=== PATIENT | female | born 1955 | race Caucasian/White ===

== ENCOUNTER 2018-09-03 11:08 | Inpatient (IN) ==
[~2018-09-03 11:08] MED LIST: MIDAZOLAM 2 MG/2 ML VIAL IV ONE; PROPOFOL 200 MG/20 ML VIAL IV ONE; fentaNYL 100 MCG/2 ML VIAL IV ONE
--- NOTE | 2018-09-03 16:54 | Internal Med History&Physical ---
Medical - H&P: [facility] Patient information: Note initiated : 09/03/18 at 4:50 pm Service Date, if different from initiated Date: [] Patient: Lizeth Newberry a 63 y/o F admitted on 09/03/18 for Right Great Toe Infection. Chief Complaint: [] Chief complaint: right big toe infection History of present illness: Ms. Newberry is a 63 year old F with a history of poorly controlled diabetes/diabetic neuropathy/foot ulcers who presents from [facility] emergency room after she presented there with increasing right big toe/distal foot swelling redness and discharge that she notices this morning along with a foul swelling order. Patient is a known diabetic with neuropathy. She endorses to poor blood sugar control. She has been following up with wound care for a year and a half for right foot ulcer secondary diabetic neuropathy. We'll last couple of days around the base of big toe she has noted increasing redness. This morning she found foul-smelling discharge soaking the Band-Aid. He subsequently went to the ER. Initial workup was consistent with cellulitis. Orthopedics was consulted and patient was requested to be transferred to [facility] for further evaluation and management and likely surgical amputation Family evaluation patient is accompanied with her Shamir. She denies activ e distress, fever, chills, sweats. She denies diarrhea dysuria, skin rash, joint pain, arthralgia myalgia. Review of systems 10 point review of system was performed and is negative except for what is discussed above Medical - H&P: PMH Medical history: COPD with exacerbation (Chronic) Hypoxia (Chronic) Pain from implanted hardware (Chronic) Recurrent UTI (Chronic) Diverticular disease (Chronic) Adrenal adenoma (Chronic) Goiter (Chronic) Morbid obesity (Chronic) Intertrigo (Chronic) Mass in neck (Chronic) Back pain, chronic (Chronic) Diabetic ulcer of right great toe (Chronic) Osteomyelitis (Chronic) DVT (deep venous thrombosis) (Chronic) Embolism (Chronic) Chest discomfort (Chronic) Recurrent boils (Chronic) Pressure ulcer of left buttock, stage 2 (Chronic) Foot ulcer, left (Chronic) Insulin dependent type 2 diabetes mellitus (Chronic) Edema (Chronic) GERD (gastroesophageal reflux disease) (Chronic) Diverticulitis (Chronic) Dysplasia of cervix (Chronic) Benign hypertension (Chronic) Anxiety disorder (Chronic) Irritable bowel syndrome (Chronic) Paranoid schizophrenia (Chronic) SOB (shortness of breath) (Chronic) 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, with long-term current use of insulin (Chronic) Dizziness (Chronic) Obstructive sleep apnea (Acute) Dysphagia (Acute) Hypertension (Acute) Chronic pain (Acute) Tobacco abuse (Acute) Hyperlipidemia (Acute) Candidiasis (Acute) COPD (chronic obstructive pulmonary disease) (Acute) Tachycardia (Acute) Leukocytosis (Acute) Cardiomegaly (Acute) Chronic toe ulcer (Acute) Diabetes mellitus type II, uncontrolled (Acute) UTI (urinary tract infection) (Acute) Urinary incontinence (Acute) Abdominal pain (Acute) Diarrhea (Acute) Dysuria (Acute) Surgical History History of oral surgery (Chronic) History of right cataract surgery (Chronic) History of bilateral knee replacement (Chronic) H/O neck surgery (Acute) History of D&C (Chronic) with cryotherapy of cervix History of bilateral salpingo-oophorectomy (BSO) (Chronic ~1981) History of colonoscopy (Chronic ~03/20/12) Beau Santiago History of esophagogastroduodenoscopy (EGD) (Chronic ~10/09/12) History of left cataract surgery (Chronic) Hx of LASIK (Chronic) right eye Family History Mother Malignant neoplasm of stomach Father Malignant neoplasm of lung Maternal Grandmother Malignant neoplasm of lung Paternal Grandmother Acute myocardial infarction History of heart bypass surgery Other Diabetes Hypertension Stroke Social history: to [place] Quit smoking 3 months ago No alcoholism Medical - H&P: Meds Home Medications Medication Instructions Recorded Confirmed Type aripiprazole 30 mg tablet 30 mg PO DAILY 30 Days #30 02/12/15 09/03/18 History fluoxetine 20 mg capsule 40 mg PO DAILY 30 Days #60 02/12/15 09/03/18 History potassium chloride ER 10 mEq 10 meq PO QAMCC 30 Days #30 02/12/15 09/03/18 History tablet,extended release albuterol 90 mcg/actuation aerosol mcg INHALATION 06/27/18 08/03/18 History inhaler amitriptyline 75 mg tablet 75 mg PO HS 06/27/18 09/03/18 History apixaban 5 mg tablet 5 mg PO BID 06/27/18 09/03/18 History fluticasone 250 mcg-salmeterol 50 1 inh INHALATION BID 06/27/18 08/03/18 History mcg/dose blistr powdr for inhalation insulin aspart U- 100 100 unit/mL See Rx Instructions SUB-Q .COMPLEX 06/27/18 08/03/18 History subcutaneous pen insulin glargine (U-100) 100 68 unit SUB-Q QHS ml 06/27/18 08/03/18 History unit/mL (3 mL) subcutaneous pen metformin 1,000 mg tablet 1,000 mg PO BID 06/27/18 09/03/18 History sitagliptin 50 mg tablet 50 mg PO DAILY 06/27/18 09/03/18 History zolpidem 5 mg tablet 5 mg PO QHS 06/27/18 09/03/18 History Furosemide [Lasix] 40 mg PO DAILY 09/03/18 09/03/18 History Omeprazole 40 mg PO ACB 09/03/18 09/03/18 History Tamsulosin [Flomax] 0.4 mg PO HS 09/03/18 09/03/18 History risperiDONE [Risperdal] 4 mg PO BID 09/03/18 09/03/18 History Allergies Allergy/AdvReac Type Severity Reaction Status Date / Time Penicillins Allergy Mild Hives Verified 09/03/18 16:19 gabapentin AdvReac Intermediate Hallucinati Verified 09/04/18 06:44 ng sulfamethoxazole AdvReac Mild Itching Verified 09/04/18 06:44 [From Bactrim] tramadol AdvReac Mild Itching Verified 09/04/18 06:44 trimethoprim [From Bactrim] AdvReac Mild Itching Verified 09/04/18 06:44 Medical - H&P: Exam - Constitutional Vitals: Temp Pulse Resp BP Pulse Ox 97.1 F 87 12 158/62 94 09/03/18 14:43 09/03/18 14:43 09/03/18 14:43 09/03/18 14:43 09/03/18 14:43 General appearance: morbidly obese Exam: Alert oriented minimally anxious Nonlabored breathing Diminished breath sounds Eye movements symmetrical Oral cavity dry No ear or nose discharge abdomen soft S1 and S2 regular rhythm Lower extremity right significant lymphedematous change/stasis dermatitis/right big toe ulcer/cellulitis distal foot Psych alert cooperative, anxious Neuro nonfocal except for neuropathic changes Medical - H&P: Reslt - Labs CBC & Chem 7: 09/04/18 03:56 09/04/18 03:56 Medical - H&P: A/P (1) Diabetic foot infection Current visit: Yes Status: Acute * Diabetic foot infection-orthopedic consult * Cellulitis, rule out osteomyelitis-right foot imagingMRI * Anxiety disorder continue home dose fluoxetine * Hypertension continue lisinopril * DM type II continue basal prandial insulin/sitagliptin * Neuropathy continue amitriptyline * History of COPD continue bronchodilators * Recently diagnosed lung mass status post biopsy. Followed by Dr. Donis * Full code Plan * Orthopedics consult * Antibiotic coverage * Rt Foot imaging * Pre-existing medical condition management as above * Nothing by mouth after midnight * Inpatient admission Medical - H&P: Qual - VTE Deep Vein Thrombosis/Pulmonary Embolism Present on Admission: No
[2018-09-03] MEDS ORDERED: guaiFENesin/CODEINE 10 ML UDC PO PRN (17:03)
[2018-09-03] MEDS ORDERED: DEXTROSE 31 GM ORAL.SUSP PO PRN (17:03)
[2018-09-03] MEDS ORDERED: ONDANSETRON 4 MG/2 ML VIAL IV PRN (17:03)
[2018-09-03] MEDS ORDERED: ACETAMINOPHEN 325 MG TABLET PO PRN (17:03)
[2018-09-03] MEDS ORDERED: DEXTROSE 50% 50 ML VIAL IV PRN (17:03)
[2018-09-03] MEDS: INSULIN LISPRO 1 UNIT/0.01 ML UNIT SQ SCH ×2 (17:37→21:22)
--- NOTE | 2018-09-03 18:30 | Orthopedic Consult Note ---
History of Present Illness - HPI Patient information: Note initiated : 09/03/18 at 6:28 pm Service Date, if different from initiated Date: [] Patient: Lizeth Newberry 63 y/o F admitted on 09/03/18 for Right Great Toe Infection. Chief Complaint: [] Consult date: 09/03/18 Requesting physician: Mike Díaz Consult reason: other (OPEN WOUND WITH INFECTION RIGHT BIG TOE) Review of Systems Constitutional: chills, fever(s) Musculoskeletal: as per HPI Medications and Allergies Home Medications Medication Instructions Recorded Confirmed Type aripiprazole 30 mg tablet 30 mg PO DAILY 30 Days #30 02/12/15 09/03/18 History fluoxetine 20 mg capsule 40 mg PO DAILY 30 Days #60 02/12/15 09/03/18 History potassium chloride ER 10 mEq 10 meq PO QAMCC 30 Days #30 02/12/15 09/03/18 History tablet,extended release albuterol 90 mcg/actuation aerosol mcg INHALATION 06/27/18 08/03/18 History inhaler amitriptyline 75 mg tablet 75 mg PO HS 06/27/18 09/03/18 History apixaban 5 mg tablet 5 mg PO BID 06/27/18 09/03/18 History fluticasone 250 mcg-salmeterol 50 1 inh INHALATION BID 06/27/18 08/03/18 History mcg/dose blistr powdr for inhalation insulin aspart U- 100 100 unit/mL See Rx Instructions SUB-Q .COMPLEX 06/27/18 08/03/18 History subcutaneous pen insulin glargine (U-100) 100 68 unit SUB-Q QHS ml 06/27/18 08/03/18 History unit/mL (3 mL) subcutaneous pen metformin 1,000 mg tablet 1,000 mg PO BID 06/27/18 09/03/18 History sitagliptin 50 mg tablet 50 mg PO DAILY 06/27/18 09/03/18 History zolpidem 5 mg tablet 5 mg PO QHS 06/27/18 09/03/18 History Furosemide [Lasix] 40 mg PO DAILY 09/03/18 09/03/18 History Omeprazole 40 mg PO ACB 09/03/18 09/03/18 History Tamsulosin [Flomax] 0.4 mg PO HS 09/03/18 09/03/18 History risperiDONE [Risperdal] 4 mg PO BID 09/03/18 04 History Allergies Allergy/AdvReac Type Severity Reaction Status Date / Time gabapentin Allergy Intermediate Hallucinati Verified 09/03/18 16:19 ng Penicillins Allergy Mild Hives Verified 09/03/18 16:19 sulfamethoxazole Allergy Mild Itching Verified 09/03/18 16:19 [From Bactrim] tramadol Allergy Mild Itching Verified 09/03/18 16:19 trimethoprim [From Bactrim] Allergy Mild Itching Verified 09/03/18 16:19 Physical Examination - Ankle & Foot right Ankle appearance: swelling, laceration Foot appearance: swelling, erythema Foot swelling: toes Tenderness with palpation: none Ankle pain worse with weight bearing: No Ankle pain relieved by non-weight bearing: No Foot pain worse with weight bearing: No Tingling/Numbness: toes Foot alignment: normal Hammer toe location: none ROM: first MTP joint flexion: 0 degrees ROM: first MTP joint extension: normal Crepitus with motion: No Strength: dorsiflexion: 5/5 Strength: plantarflexion: 5/5 Assessment and Plan (1) Diabetic foot infection Status: Acute - Narrative A/P Narrative: bad infection right big toe but has strong pulse in foot. Picture consistent with osteomyelitis right big toe. Recommend stat MRI to evaluate for proximal extent of the infection. Risks of treatment options discussed with patient . Will need toe amputation, possible ray resection. Risk of medical deterioration or needing higher amputation discussed with patient/
[2018-09-03] MEDS ORDERED: traZODone HCL 50 MG TABLET PO PRN (21:00)
[2018-09-03] MEDS: SENNOSIDES/DOCUSATE SODIUM 1 TAB TABLET PO SCH (21:06)
[2018-09-03] MEDS: DOCUSATE SODIUM 100 MG CAPSULE PO SCH (21:06)
[2018-09-03] MEDS: HEPARIN 5,000 UNIT/ML VIAL SQ SCH (21:16)
[2018-09-03] MEDS: 0.9 % SODIUM CHLORIDE 10 ML SYRINGE IV SCH (21:23)
[2018-09-04] MEDS: 0.9 % SODIUM CHLORIDE 10 ML SYRINGE IV SCH ×3 (05:09→22:37)
[2018-09-04 05:23] LABS: Platelet Count 276 K/mcL (140-440); RBC 4.67 M/mcL (4.00-5.20); Red Cell Distribution Width 17.4 % (11.5-14.5)
[2018-09-04 05:26] LABS: ALT/SGPT 34 U/l (0-40); Albumin 3.3 gm/dL (3.2-5.2); Alkaline Phosphatase 111 U/L (39-117); Bilirubin,Direct < 0.2 mg/dL (0.0-0.3); Blood Urea Nitrogen 14 mg/dl (8-23); Gamma Glutamyl Transpeptidase 63 U/L (5-36); Uric Acid 7.3 mg/dL (2.5-8.0)
[2018-09-04 06:37] LABS: Lymphocytes % 22 % (15-49); Monocytes % (Manual) 7 % (1-12); Platelet Estimate NORMAL (NORMAL); RBC Morphology ABNORM (NORMAL); Segmented Neutrophils % 71 % (38-78)
[2018-09-04 06:38] LABS: Anisocytosis 1+ (NONE SEEN)
[2018-09-04] MEDS: INSULIN LISPRO 1 UNIT/0.01 ML UNIT SQ SCH ×6 (07:30→21:18)
[2018-09-04] MEDS ORDERED: IPRATROPIUM/ALBUTEROL 3 ML AMPUL.NEB NEB PRN (07:51)
[2018-09-04] MEDS ORDERED: SCOPOLAMINE 1 PATCH PATCH TOPICAL PRN (07:51)
[2018-09-04 09:08] LABS: Hemoglobin A1C 9.2 % HGB (4.0-6.0)
[2018-09-04] MEDS ORDERED: VANCOMYCIN PER PHARMACY IV SCH (09:15)
[2018-09-04] MEDS: cefTRIAXone 2 GM in DEXTROSE 5% IN WATER 50 ML IV SCH (09:50)
--- NOTE | 2018-09-04 10:13 | General Surgery Consult Note ---
History of Present Illness Patient information: Note initiated : 09/04/18 at 10:10 am Service Date, if different from initiated Date: [] Patient: Lizeth Newberry 63 y/o F admitted on 09/03/18 for Right Great Toe Infection. Chief Complaint: [] Consult date: 09/03/18 Requesting physician: Oswaldo Saba (Wound Care f/u) History of present illness: Complicated sssi DFU Right great toe with ulceration. For toe amputation on 09/04/[address] Saba. Reviewed EHR and saw patient in room 125 with Vianca DEY Wound Nurse and patient's family member. MRI reviewed. Final report awaited. Medications and Allergies Home Medications Medication Instructions Recorded Confirmed Type aripiprazole 30 mg tablet 30 mg PO DAILY 30 Days #30 02/12/15 09/03/18 History fluoxetine 20 mg capsule 40 mg PO DAILY 30 Days #60 02/12/15 09/03/18 History potassium chloride ER 10 mEq 10 meq PO QAMCC 30 Days #30 02/12/15 09/03/18 History tablet,extended release albuterol 90 mcg/actuation aerosol mcg INHALATION 06/27/18 08/03/18 History inhaler amitriptyline 75 mg tablet 75 mg PO HS 06/27/18 09/03/18 History apixaban 5 mg tablet 5 mg PO BID 06/27/18 09/03/18 History fluticasone 250 mcg-salmeterol 50 1 inh INHALATION BID 06/27/18 08/03/18 History mcg/dose blistr powdr for inhalation insulin aspart U- 100 100 unit/mL See Rx Instructions SUB-Q .COMPLEX 06/27/18 08/03/18 History subcutaneous pen insulin glargine (U-100) 100 68 unit SUB-Q QHS ml 06/27/18 08/03/18 History unit/mL (3 mL) subcutaneous pen metformin 1,000 mg tablet 1,000 mg PO BID 06/27/18 09/03/18 History sitagliptin 50 mg tablet 50 mg PO DAILY 06/27/18 09/03/18 History zolpidem 5 mg tablet 5 mg PO QHS 06/27/18 09/03/18 History Furosemide [Lasix] 40 mg PO DAILY 09/03/18 09/03/18 History Omeprazole 40 mg PO ACB 09/03/18 09/03/18 History Tamsulosin [Flomax] 0.4 mg PO HS 09/03/18 09/03/18 History risperiDONE [Risperdal] 4 mg PO BID 09/03/18 09/03/18 History Allergies Allergy/AdvReac Type Severity Reaction Status Date / Time Penicillins Allergy Mild Hives Verified 09/03/18 16:19 gabapentin AdvReac Intermediate Hallucinati Verified 09/04/18 06:44 ng sulfamethoxazole AdvReac Mild Itching Verified 09/04/18 06:44 [From Bactrim] tramadol AdvReac Mild Itching Verified 09/04/18 06:44 trimethoprim [From Bactrim] AdvReac Mild Itching Verified 09/04/18 06:44 Exam Temp Pulse Resp BP Pulse Ox 98.2 F 79 20 108/53 90 09/04/18 08:00 09/04/18 08:00 09/04/18 08:00 09/04/18 08:00 09/04/18 08:00 - General physical appearance obese (Morbid obesity) - Eyes PERRL, normal ocular movement - ENT normal pinna, normal mucosa, no congestion - Head Head exam IM: Present: atraumatic, normocephalic - Neck no masses, trachea midline, no venous distension - Cardiovascular Cardiovascular exam IM: Present: normal rate and rhythm - Respiratory normal respiratory effort, clear to auscultation - Abdomen Abdomen: Present: soft, non tender, bowel sounds - Integumentary Present: other (RIGHT great toe DFU with maceration of skin, sub q tissue and ulceration extending upto base. NO crepitus. ) - Neurologic Present: other (Peeripheral neuropathy. ) - Musculoskeletal Present: other (Right foot 1 st toe CSSSI. Palpable pedal pulses. ) - Psychiatric Present: oriented to time, oriented to person, oriented to place, speech is normal Results - Labs 09/04/18 03:56 09/04/18 03:56 Abnormal lab results 09/04/18 09/04/18 09/04/18 Range/Units 03:56 03:56 03:56 WBC 12.4 H (4.5-11.0) K/mcL RDW 17.4 H (11.5-14.5) % RBC Morphology Abnorm A (NORMAL) Anisocytosis 1+ A (NONE SEEN) Glucose 212 H (70-105) mg/dL Hemoglobin A1c 9.2 H (4.0-6.0) % HGB GGT 63 H (5-36) U/L Diabetes panel 09/04/18 09/04/18 Range/Units 03:56 03:56 Sodium 135 (133-145) mmol/L Potassium 4.1 (3.3-5.1) mmol/L Chloride 98 (96-108) mmol/L Carbon Dioxide 24 (22-30) mmol/L BUN 14 (8-23) mg/dl Creatinine 0.8 (0.6-1.1) mg/dl Glucose 212 H (70-105) mg/dL Hemoglobin A1c 9.2 H (4.0-6.0) % HGB Calcium 8.8 (8.6-10.4) mg/dl AST 33 (0-37) U/l ALT 34 (0-40) U/l Alkaline Phosphatase 111 (39-117) U/L Total Protein 6.6 (5.9-8.4) gm/dL Albumin 3.3 (3.2-5.2) gm/dL Triglycerides 133 (<150) mg/dl Calcium panel 09/04/18 Range/Units 03:56 Calcium 8.8 (8.6-10.4) mg/dl Phosphorus 4.2 (2.7-4.5) mg/dL Albumin 3.3 (3.2-5.2) gm/dL Pituitary panel 09/04/18 Range/Units 03:56 Sodium 135 (133-145) mmol/L Potassium 4.1 (3.3-5.1) mmol/L Chloride 98 (96-108) mmol/L Carbon Dioxide 24 (22-30) mmol/L BUN 14 (8-23) mg/dl Creatinine 0.8 (0.6-1.1) mg/dl Glucose 212 H (70-105) mg/dL Calcium 8.8 (8.6-10.4) mg/dl Adrenal panel 09/04/18 Range/Units 03:56 Sodium 135 (133-145) mmol/L Potassium 4.1 (3.3-5.1) mmol/L Chloride 98 (96-108) mmol/L Carbon Dioxide 24 (22-30) mmol/L BUN 14 (8-23) mg/dl Creatinine 0.8 (0.6-1.1) mg/dl Glucose 212 H (70-105) mg/dL Calcium 8.8 (8.6-10.4) mg/dl Total Bilirubin 0.4 (0.0-1.0) mg/dL AST 33 (0-37) U/l ALT 34 (0-40) U/l Alkaline Phosphatase 111 (39-117) U/L Total Protein 6.6 (5.9-8.4) gm/dL Albumin 3.3 (3.2-5.2) gm/dL All other labs normal. Assessment and Plan (1) Sepsis due to other etiology Assessment: CSSSI Right great toe. Suspect osteo. Plan: Await surgery by Dr. Saba. Will follow. Status: Acute Priority: Medium (2) Diabetic foot infection Status: Chronic Priority: Medium
--- NOTE | 2018-09-04 10:13 | Internal Med Progress Note ---
Medical - PN: Subj Patient information: Note initiated : 09/04/18 at 10:11 am Service Date, if different from initiated Date: [] Patient: Lizeth Newberry a 63 y/o F admitted on 09/03/18 for Right Great Toe Infection. Chief Complaint: [] Interval history: Ms. Newberry is a 63 year old F with a history of poorly controlled diabetes/diabetic neuropathy/foot ulcers who presents from [facility] emergency room after she presented there with increasing right big toe/distal foot swelling redness and discharge that she notices this morning along with a foul swelling order. Patient is a known diabetic with neuropathy. She endorses to poor blood sugar control. She has been following up with wound care for a year and a half for right foot ulcer secondary diabetic neuropathy. We'll last couple of days around the base of big toe she has noted increasing redness. This morning she found foul-smelling discharge soaking the Band-Aid. He subsequently went to the ER. Initial workup was consistent with cellulitis. Orthopedics was consulted and patient was requested to be transferred to [facility] for further evaluation and management and likely surgical amputation At the time of evaluation patient is accompanied with her Shamir. She denies active distress, fever, chills, sweats. She denies diarrhea dysuria, sk in rash, joint pain, arthralgia myalgia. 09/04-patient doing well. No overnight events. No concerns per staff. Orthopedics consulted and scheduled for amputation right great toe today. On antibiotic coverage including Rocephin/vancomycin. White count at 12,000. A1c 9.2 indicative of poor outpatient diabetes controlled. - Constitutional Vitals: Vital Signs Temp Pulse Resp BP Pulse Ox 98.2 F 79 20 108/53 90 09/04/18 08:00 09/04/18 08:00 09/04/18 08:00 09/04/18 08:00 09/04/18 08:00 Period Temp Pulse Resp BP Sys/Madrigal Pulse Ox Last 24 Hr 97.1 F-98.2 F 79-90 12-21 108-158/53-78 90-95 Intake and Output 09/03/18 09/04/18 09/04/18 21:59 05:59 13:59 Intake Total 440 Output Total 1175 325 400 Balance -1175 115 -400 Weight 309 lb Intake & Output: Intake & Output 09/03/18 09/04/18 09/04/18 21:59 05:59 13:59 Intake Total 440 Output Total 1175 325 400 Balance -1175 115 -400 Weight 309 lb Intake: Oral 440 Output: Void Amount 1175 325 400 Other: Urine Appearance Cloudy Urine Color Dark Yellow Light Jo-Ann Urine Odor Strong General appearance: morbidly obese, no acute distress Exam: Minimally anxious about surgery Lower extremity bilateral stasis dermatitis Right great toe redness/discharge Nonlabored breathing Medical - PN: Obj Da - Labs CBC & Chem 7: 09/04/18 03:56 09/04/18 03:56 Labs: Abnormal Lab Results 09/04/18 09/04/18 09/04/18 03:56 03:56 03:56 WBC 12.4 H RDW 17.4 H RBC Morphology Abnorm A Anisocytosis 1+ A Glucose 212 H Hemoglobin A1c 9.2 H GGT 63 H Meds: Medications Acetaminophen (Tylenol) 650 mg PO Q4-6HP PRN PRN Reason: PAIN/FEVER > 101 Dextrose (Dextrose 50%) 0 ml IV UD PRN PRN Reason: Hypoglycemia Diagnostic Test (Pha) (Accu-Chek) 1 each FS [facility] Last Admin: 09/04/18 06:49 Dose: 1 each Documented by: Docusate Sodium (Colace) 100 mg PO BID [facility] Last Admin: 09/03/18 21:06 Dose: Not Given Documented by: Glucose (Insta-Glucose) 15 gm PO PRN PRN PRN Reason: Hypoglycemia Guaifenesin/Codeine Phosphate (Robitussin Ac) 10 ml PO Q4HP PRN PRN Reason: Cough Heparin Sodium (Porcine) (Heparin) 5,000 unit SQ Q12 [facility] Last Admin: 09/03/18 21:16 Dose: Not Given Documented by: Ceftriaxone Sodium 2 gm/ (Dextrose) 50 mls @ 100 mls/hr IV Q24H [facility] Last Admin: 09/04/18 09:50 Dose: 100 mls/hr Documented by: Vancomycin HCl 1,500 mg/ (Sodium Chloride) 500 mls @ 333.3 mls/hr IV Q12H [facility] Insulin Human Lispro (Humalog) 0 unit SQ ACHS [facility]; Protocol Last Admin: 09/03/18 21:22 Dose: 4 units Documented by: Iron Carb/Multivit/[place]/Folic Acid (Multivitamin W/Minerals) 1 tab PO DAILY [facility] Ondansetron HCl (Zofran) 4 mg IV Q4-6HP PRN PRN Reason: Nausea And Vomiting Senna/Docusate Sodium (Senna Plus Tablet) 1 tab PO HS [facility] Last Admin: 09/03/18 21:06 Dose: Not Given Documented by: Sodium Chloride (Saline Flush) 10 ml IV Q8 [facility] Last Admin: 09/04/18 05:09 Dose: 10 ml Documented by: Trazodone HCl (Desyrel) 50 mg PO HSP PRN PRN Reason: Insomnia Last Admin: 09/03/18 21:23 Dose: 50 mg Documented by: Vancomycin HCl (Vancomycin Per Pharmacy) 1 order IV UD [facility] Medical - PN: A/P - Time Spent With Patient Total time spent is greater than 50% in coordination of care (as documented) at patient's floor/unit and/or counseling patient: 25 - 35 minutes (1) Diabetic foot infection Status: Acute Assessment and plan: * Diabetic foot infection-orthopedic consulted, amputation later today. Would MRI results we did * Anxiety disorder managed on home dose fluoxetine * Hypertension managed on lisinopril * DM type II continue basal prandial insulin/sitagliptin * Neuropathy continue amitriptyline * History of COPD continue bronchodilators * Recently diagnosed lung mass status post biopsy. Followed by Dr. Donis * Anticoagulation-continue holding until surgery * History of GERD on PPI * Full code Plan * Review post operative * Restart anticoagulation postoperatively on 09/05 * Antibiotic coverage-Rocephin/vancomycin * Pre-existing medical condition management to continue as above * Diabetic education/diet postoperatively Current Visit: Yes Medical - PN: Qual - VTE Deep Vein Thrombosis/Pulmonary Embolism Present on Admission: No
[2018-09-04] MEDS: MULTIVIT,THER IRON,CA,FA & MIN 1 TABLET PO SCH (10:39)
[2018-09-04] MEDS: DOCUSATE SODIUM 100 MG CAPSULE PO SCH ×2 (10:39→20:59)
[2018-09-04] MEDS: HEPARIN 5,000 UNIT/ML VIAL SQ SCH ×2 (10:39→21:03)
[2018-09-04] MEDS: VANCOMYCIN 1,500 MG in 0.9 % SODIUM CHLORIDE 500 ML IV SCH ×2 (11:30→20:55)
--- NOTE | 2018-09-04 11:52 | Brief Operative Note ---
Date of procedure: 09/04/18 Pre-op diagnosis: infected right big toe Post-op diagnosis: same Procedure: Amputation right big toe Grafts/Implants: No Anesthesia: local Surgeon: Oswaldo Saba [employer] Internship: Ronald Martin Estimated blood loss (cc): 10 Tourniquet Time (Minutes): 5 Specimens Removed/Pathology: other (culture and biopsy of proximal phalanx that remained in pt) Condition: stable Disposition: PACU
[2018-09-04] MEDS ORDERED: HYDROcodone/APAP 10/325MG TABLET PO PRN (11:55)
[2018-09-04] MEDS ORDERED: BUPIVACAINE 0.5% 50 ML VIAL IJ ONE (12:01)
--- NOTE | 2018-09-04 12:23 | XRay Report ---
CLINICAL INFORMATION: toe amputation right hallux COMPARISON: Preoperative plain film 10/11/2017 FINDINGS: First ray amputation at the proximal phalanx base is appreciated. Mild soft tissue swelling over the amputation stump seen as expected. No other osseous abnormalities. IMPRESSION: First ray amputation at the first proximal phalangeal base. Typical postoperative appearance Interpreted and Authenticated by: Loki Loyd 09/04/18
--- NOTE | 2018-09-04 12:28 | Operative Note ---
DATE OF OPERATION: 09/04/2018 PREOPERATIVE DIAGNOSIS: Infection of the right big toe to the proximal phalanx. POSTOPERATIVE DIAGNOSIS: Infection of the right big toe to the proximal phalanx. OPERATION: Amputation through the proximal phalanx of the big toe. SURGEON: Oswaldo Saba MD BRASS BOBBIN WINDER: Ronald Martin PA-C ANESTHESIA: Local block, done by Allyson Dean CRNA TOURNIQUET TIME: About 5 minutes, ankle level Esmarch tourniquet. SUMMARY OF PROCEDURE: The patient was placed on the operating room table. An ankle block was placed with 30 mL of Marcaine for postoperative analgesia. A digital block was placed with 10 mL of 1% lidocaine without epinephrine. The Marcaine did not have epinephrine either. The foot and ankle were prepped and draped. An ankle level Esmarch tourniquet was put up. A fishmouth incision was made at the base of the toe to excise the two areas of ulceration. This incision was taken down sharply to the bone. Dorsal and plantar flaps were developed. The bone was osteotomized in the diaphysis of the proximal phalanx and then resected. We curetted bone from the remaining proximal phalanx for both culture and for biopsy. The wound was irrigated with pulse lavage. The tourniquet was let down and all bleeding points were coagulated. The incision was then closed with buried 2-0 Monocryl, then mattress sutures of 3-0 nylon on the skin. A sterile compressive dressing was applied. The sponge, needle count was correct. The patient tolerated the procedure well and was taken to the recovery room in stable condition. TJF:petr Job ID: [id number] Doc ID: [id number] Oswaldo Saba MD
--- NOTE | 2018-09-04 15:50 | Magnetic Resonance Report ---
CLINICAL INFORMATION: infection right great toe with overlying cutaneous Planter ulcer COMPARISON: 01/13/2015 TECHNIQUE: Axial T1 and T2 proton density, proton density T2 sagittal T1 and T2-weighted images were acquired FINDINGS: On T2 and proton density sequences, there is moderate patchy increased intramedullary signal throughout the first distal phalanx and the distal one half of the first proximal phalanx with cortical erosion and septic arthritis of the intervening PIP. There is overlying cellulitis and a small cutaneous Planter ulcer. Scattered low signal may represent calcium or dressing within the soft tissues. Moderate diffuse cellulitis seen throughout the subcutaneous fat of the forefoot and midfoot with fasciitis in the deep plantar area. The marrow signal throughout the remainder of the foot is otherwise normal. There are no additional foci of osteomyelitis. The joint spaces normal with alignment without arthritic change. Tendon sheaths are normal. IMPRESSION: Moderate osteomyelitis involving the first distal phalanx and the distal one half of the first proximal phalanx with septic arthritis in the first PIP joint. Overlying cellulitis noted. Diffuse cellulitis throughout the foot with fasciitis of the deep plantar region Interpreted and Authenticated by: Loki Loyd 09/04/18
[2018-09-04] MEDS: metFORMIN 500 MG TABLET PO SCH (16:40)
[2018-09-04] MEDS: ALBUTEROL SULFATE 1 PUFF INHALER INH PRN (20:23)
[2018-09-04] MEDS: risperiDONE 1 MG TABLET PO SCH (20:56)
[2018-09-04] MEDS: TAMSULOSIN 0.4 MG CAPSULE PO SCH (20:59)
[2018-09-04] MEDS: AMITRIPTYLINE 25 MG TABLET PO SCH (20:59)
[2018-09-04] MEDS: INSULIN GLARGINE, HUMAN 1 UNIT/0.01 ML SQ SCH (21:00)
[2018-09-04] MEDS: SENNOSIDES/DOCUSATE SODIUM 1 TAB TABLET PO SCH (21:00)
[2018-09-04] MEDS: ZOLPIDEM 5 MG TABLET PO SCH (21:01)
[2018-09-05] MEDS: ALBUTEROL SULFATE 1 PUFF INHALER INH PRN (01:59)
[2018-09-05 07:18] LABS: ALT/SGPT 34 U/l (0-40); Albumin 3.1 gm/dL (3.2-5.2); Albumin/Globulin Ratio 0.9 (1.0-2.3); Alkaline Phosphatase 107 U/L (39-117); Bilirubin,Direct < 0.2 mg/dL (0.0-0.3); Blood Urea Nitrogen 14 mg/dl (8-23); Gamma Glutamyl Transpeptidase 60 U/L (5-36)
[2018-09-05] MEDS: INSULIN LISPRO 1 UNIT/0.01 ML UNIT SQ SCH ×7 (07:51→21:27)
[2018-09-05] MEDS: 0.9 % SODIUM CHLORIDE 10 ML SYRINGE IV SCH ×3 (07:53→21:28)
[2018-09-05] MEDS: OMEPRAZOLE 20 MG CAPSULE PO SCH (07:53)
[2018-09-05] MEDS: cefTRIAXone 2 GM in DEXTROSE 5% IN WATER 50 ML IV SCH (09:29)
[2018-09-05] MEDS: INSULIN GLARGINE, HUMAN 1 UNIT/0.01 ML SQ SCH ×2 (09:30→21:28)
[2018-09-05] MEDS: metFORMIN 500 MG TABLET PO SCH ×2 (09:31→17:14)
[2018-09-05] MEDS: DOCUSATE SODIUM 100 MG CAPSULE PO SCH ×2 (09:32→21:26)
[2018-09-05] MEDS: sitaGLIPtin 50 MG TABLET PO SCH (09:32)
[2018-09-05] MEDS: FLUoxetine HCL 20 MG CAPSULE PO SCH (09:32)
[2018-09-05] MEDS: MULTIVIT,THER IRON,CA,FA & MIN 1 TABLET PO SCH (09:33)
[2018-09-05] MEDS: FUROSEMIDE 40 MG TABLET PO SCH (09:33)
[2018-09-05] MEDS: ARIPIPRAZOLE 20 MG TABLET PO SCH (09:34)
[2018-09-05] MEDS: POTASSIUM CHLORIDE 10 MEQ TABLET PO SCH (09:34)
[2018-09-05 10:18] LABS: Mean Cell Volume 87.3 fL (80.0-100.0); Mean Corpuscular HGB Conc 32.3 g/dL (31.0-36.0); Platelet Count 248 K/mcL (140-440); RBC 4.48 M/mcL (4.00-5.20)
[2018-09-05] MEDS: HEPARIN 5,000 UNIT/ML VIAL SQ SCH (10:41)
[2018-09-05] MEDS: VANCOMYCIN 1,500 MG in 0.9 % SODIUM CHLORIDE 500 ML IV SCH ×2 (10:53→21:26)
[2018-09-05] MEDS: risperiDONE 1 MG TABLET PO SCH ×2 (10:57→21:26)
[2018-09-05 12:16] LABS: Anisocytosis 1+ (NONE SEEN); Eosinophils % (Manual) 2 % (0-7); Lymphocytes % 14 % (15-49); Monocytes % (Manual) 8 % (1-12); Platelet Estimate NORMAL (NORMAL); RBC Morphology ABNORMAL (NORMAL); Segmented Neutrophils % 76 % (38-78)
--- NOTE | 2018-09-05 13:42 | Infectious Disease Consult ---
History of Present Illness Patient information: Note initiated : 09/05/18 at 1:13 pm Service Date, if different from initiated Date: [] Patient: Lizeth Newberry 63 y/o F admitted on 09/03/18 for Right Great Toe Infection. 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 Pt reports that she had an ulcer over her great toe for about 1.5 years. On this Monday, she and her saw a huge ulcer on the bottom of her right great toe. Pt has been f/u with Dr Gastelum and was seen about 2 weeks ago with no concerns for infection. She denied any fever, chills, n/v, diarrhea, trauma. At [facility] ED, she underwent right foot MRI which showed "Moderate osteomyelitis involving the first distal phalanx and the distal one half of the first proximal phalanx with septic arthritis in the first PIP joint. Overlying cellulitis noted. Diffuse cellulitis throughout the foot with fasciitis of the deep plantar region". Patient underwent emergent surgery by Dr. Saba with amputation of right great toe. Operative cultures were sent. She was started on IV vancomycin and IV ceftriaxone postoperatively. At time of visit today, she confirmed the above history. Added that her blood sugars have been running somewhere between [phone] at home. He tries her best to modify her diet and control her blood sugars. Adds that she is not physically active because of her joint replacements in the knees and weight. She mentions that she was recently diagnosed with lung cancer, does not know the stage or the size of tumor. Review of Systems All systems PM: reviewed and no additional remarkable complaints except as stated Past History Past social history: lives with her in [place], [place] quit smoking about 3 mnths ago Medications and Allergies Home Medications Medication Instructions Recorded Confirmed Type aripiprazole 30 mg tablet 30 mg PO DAILY 30 Days #30 09/17/15 04/08/19 History fluoxetine 20 mg capsule 40 mg PO DAILY 30 Days #60 02/12/15 09/03/18 History potassium chloride ER 10 mEq 10 meq PO QAMCC 30 Days #30 02/12/15 09/03/18 History tablet,extended release amitriptyline 75 mg tablet 75 mg PO HS 06/27/18 09/03/18 History apixaban 5 mg tablet 5 mg PO BID 06/27/18 09/03/18 History insulin glargine (U-100) 100 60 unit SUB-Q BID ml 06/27/18 09/04/18 History unit/mL (3 mL) subcutaneous pen metformin 1,000 mg tablet 1,000 mg PO BID 06/27/18 09/03/18 History sitagliptin 50 mg tablet 50 mg PO DAILY 06/27/18 09/03/18 History zolpidem 5 mg tablet 5 mg PO QHS 06/27/18 09/03/18 History Furosemide [Lasix] 40 mg PO DAILY 09/03/18 09/03/18 History Omeprazole 40 mg PO ACB 09/03/18 09/03/18 History Tamsulosin [Flomax] 0.4 mg PO HS 09/03/18 09/03/18 History Albuterol Sulfate [Proair Hfa] 2 puff INH Q4HP PRN 09/04/18 09/04/18 History Novolog 24 - 49 units SQ ACB 09/04/18 09/04/18 History Novolog 36 - 49 units SQ 1200 09/04/18 09/04/18 History Novolog 39 - 49 units SQ 1700 09/04/18 09/04/18 History risperiDONE [Risperdal] 6 mg PO BID 09/04/18 09/04/18 History Allergies Allergy/AdvReac Type Severity Reaction Status Date / Time Penicillins Allergy Mild Hives Verified 09/03/18 16:19 gabapentin AdvReac Intermediate Hallucinati Verified 09/04/18 06:44 ng sulfamethoxazole AdvReac Mild Itching Verified 09/04/18 06:44 [From Bactrim] tramadol AdvReac Mild Itching Verified 09/04/18 06:44 trimethoprim [From Bactrim] AdvReac Mild Itching Verified 09/04/18 06:44 Physical Examination Vital signs: Temp Pulse Resp BP Pulse Ox 36.2 C 93 H 18 141/81 93 09/05/18 12:00 09/05/18 12:00 09/05/18 12:00 09/05/18 12:00 09/05/18 12:00 General appearance: no acute distress Eyes pulmonary: nonicteric Auscultation: bilateral: clear Cardiovascular: other (s1 s2 normal, no murmurs auscultated) Gastrointestinal: normoactive bowel sounds Extremities: other (has changes of chronic venous stasis in both lower extremities with induration in lower half of both legs) Results - Laboratory Findings CBC and BMP: 09/05/18 09:22 09/05/18 04:43 Abnormal lab findings: Abnormal Labs 09/04/18 09/04/18 09/04/18 03:56 03:56 03:56 WBC 12.4 H RDW 17.4 H Lymphocytes % RBC Morphology Abnorm A Anisocytosis 1+ A Glucose 212 H Hemoglobin A1c 9.2 H GGT 63 H Lactate Dehydrogenase Albumin Albumin/Globulin Ratio 09/05/18 09/05/18 04:43 09:22 WBC 12.6 H RDW 17.0 H Lymphocytes % 14 L RBC Morphology Anisocytosis 1+ A Glucose 187 H Hemoglobin A1c GGT 60 H Lactate Dehydrogenase 271 H Albumin 3.1 L Albumin/Globulin Ratio 0.9 L Microbiology: Microbiology 09/04/18 12:36 Toe - First Anaerobic Culture - Preliminary Assessment and Plan - Narrative A/P Narrative: A: 1. Rt great toe necrotic infection with MRI findings of distal and proximal phalanx osteomyelitis, right first PIP septic arthrits: - s/p removal of great toe (proximal and distal phalanx) on 09/04/18, operative Cx pending 2. qSOFA score 0: no concerns for Sepsis 3. No Hx of MRSA: based on review of past Micro in [place] and pt denies any such past Hx - MRSA nasal PCR ordered this afternoon is neg Recommendations: - Continue IV Vanc per pharmacy assisted dosing - Stop IV Ceftriaxone. Start IV Cefepime 2 gm q8 hrs - will deescalate per operative Cx - As MRSA nasal PCR is neg with no prior Hx, contact precautions could be removed - anticipate at least 4 weeks of antibiotics will follow Bg Gordon MD Infectious diseases
--- NOTE | 2018-09-05 14:14 | Surgical Pathology Report ---
HISTOLOGY SPECIMEN MICROSCOPIC DIAGNOSIS BONE, RIGHT GREAT TOE, BIOPSY: -- VIABLE TRABECULAR BONE. -- NO OSTEOMYELITIS IDENTIFIED. (DMT:sln) PROCEDURAL IMPRESSION Rule out osteomyelitis. GROSS DESCRIPTION Received in formalin designated right great toe rule out osteomyelitis per requisition, is a firm fields segment of tissue that measures 0.5 x 0.3 x 0.2 cm. Entirely submitted following light decalcification. (SCB:mi) Electronically Signed by: Yaakov Maynard M.D.
--- NOTE | 2018-09-05 15:57 | Orthopedic Progress Note ---
Subjective Patient information: Note initiated : 09/05/18 at 3:51 pm Service Date, if different from initiated Date: [] Patient: Lizeth Newberry 63 y/o F admitted on 09/03/18 for Right Great Toe Infection. Chief Complaint: [] Interval history: Patient is doing well and has little pain. Her dressings were saturated with blood and were reinforced twice since yesterday. Objective Vital signs: Vital Signs Temp Pulse Pulse Resp BP BP Pulse Ox 09/05/18 15:43 98.1 F 91 H 16 126/72 93 09/05/18 12:00 97.1 F 93 H 18 141/81 93 09/05/18 08:01 98.5 F 92 H 18 120/68 93 09/05/18 08:00 92 H 88 18 93 09/05/18 04:44 98.2 F 88 18 120/58 93 09/04/18 22:44 98.6 F 87 20 142/68 91 09/04/18 19:02 96.8 F L 81 20 115/52 93 09/04/18 19:01 126/38 09/04/18 16:16 97.9 F 82 20 126/71 94 Intake and Output 09/05/18 09/05/18 09/05/18 05:59 13:59 21:59 Intake Total 2300 800 1360 Output Total 1475 2625 525 Balance 825 -1825 835 Intake: IV 500 Vancomycin 1,500 mg In Sodium 500 Chloride 0.9% 500 ml @ 333.3 mls/hr IV Q12H [facility] Rx#: [id number] Oral [id number] Output: Urine Catheter Amount 525 Void Amount 1475 2625 Other: Meal Lunch Percent of Meal Consumed 100% Feeding Ability Independent Urine Appearance Clear Cloudy Urine Color Pale Pale Urine Odor Strong Stool Size Moderate Stool Color Brown Stool Consistency Soft Formed # Voids 1 # Bowel Movements 1 Intake & Output: Intake & Output 09/05/18 09/05/18 09/05/18 05:59 13:59 21:59 Intake Total 2300 800 1360 Output Total 1475 2625 525 Balance 825 -1825 835 Intake: IV 500 Vancomycin 1,500 mg In Sodium 500 Chloride 0.9% 500 ml @ 333.3 mls/hr IV Q12H [facility] Rx#: [id number] Oral [id number] Output: Urine Catheter Amount 525 Void Amount 1475 2625 Other: Meal Lunch Percent of Meal Consumed 100% Feeding Ability Independent Urine Appearance Clear Cloudy Urine Color Pale Pale Urine Odor Strong Stool Size Moderate Stool Color Brown Stool Consistency Soft Formed # Voids 1 # Bowel Movements 1 Incision: Yes healing, Yes draining, Yes clean and dry Incision clean and dry: Yes Dressing: Yes clean, Yes intact Weight bearing status: as tolerated Extremities exam IM: Yes Foot pink and warm - Labs CBC & BMP: 09/05/18 09:22 09/05/18 04:43 Labs: Orthopedic Labs 09/04/18 10:11 POC PT 12.5 POC INR 1.0 09/05/18 09/05/18 09/04/18 09:22 04:43 03:56 Hgb 12.6 TNP 13.1 Hct 39.1 TNP 41.1 Assessment and Plan (1) Great toe amputation status Patients dressings were changed today 09/05/09 1. May transfer to swing whenever 2. WBAT on RLE with post op shoe, try to keep walking to minimum for next 2 weeks 3. Elevate leg for pain and swelling 4. change dressings if saturated otherwise dressing changes daily starting on 09/07/18 with gauze for drainage 5. Follow up appointment with [facility] on 09-24-18 and sooner if signs of redness or purulent drainage Status: Acute
[2018-09-05] MEDS: CEFEPIME 2 GM VIAL IV SCH ×2 (17:20→23:28)
--- NOTE | 2018-09-05 19:17 | Internal Med Progress Note ---
Medical - PN: Subj Patient information: Note initiated : 09/05/18 at 7:16 pm Service Date, if different from initiated Date: [] Patient: Lizeth Newberry a 63 y/o F admitted on 09/03/18 for Right Great Toe Infection. Chief Complaint: [] Interval history: Ms. Newberry is a 63 year old F with a history of poorly controlled diabetes/diabetic neuropathy/foot ulcers who presents from [facility] emergency room after she presented there with increasing right big toe/distal foot swelling redness and discharge that she notices this morning along with a foul swelling order. Patient is a known diabetic with neuropathy. She endorses to poor blood sugar control. She has been following up with wound care for a year and a half for right foot ulcer secondary diabetic neuropathy. We'll last couple of days around the base of big toe she has noted increasing redness. This morning she found foul-smelling discharge soaking the Band-Aid. He subsequently went to the ER. Initial workup was consistent with cellulitis. Orthopedics was consulted and patient was requested to be transferred to [facility] for further evaluation and management and likely surgical amputation At the time of evaluation patient is accompanied with her Shamir. She denies active distress, fever, chills, sweats. She denies diarrhea dysuria, ski n rash, joint pain, arthralgia myalgia. 09/04-patient doing well. No overnight events. No concerns per staff. Orthopedics consulted and scheduled for amputation right great toe today. On antibiotic coverage including Rocephin/vancomycin. White count at 12,000. A1c 9.2 indicative of poor outpatient diabetes controlled. 09/05- ray taken postop day 1. No overnight events. On antibiotic coverage. ID consulted. Patient will transition to swing bed at [facility] on discharge. 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 Case discussed with pulmonology and recommends outpatient oncology follow-up. Biopsy findings/discussion with pulmonology and recommendations were relayed to patient. - Constitutional Vitals: Vital Signs Temp Pulse Resp BP Pulse Ox 98.1 F 91 H 16 138/69 93 09/05/18 16:00 09/05/18 16:00 09/05/18 16:00 09/05/18 16:00 09/05/18 16:00 Period Temp Pulse Resp BP Sys/Madrigal Pulse Ox Last 24 Hr 97.1 F-98.6 F 87-93 16-20 120-142/58-81 91-93 Intake and Output 09/05/18 09/05/18 09/05/18 05:59 13:59 21:59 Intake Total 2300 800 1600 Output Total 1475 2625 975 Balance 825 -1825 625 Intake & Output: Intake & Output 09/05/18 09/05/18 09/05/18 05:59 13:59 21:59 Intake Total 2300 800 1600 Output Total 1475 2625 975 Balance 825 -1825 625 Intake: IV 500 Vancomycin 1,500 mg In Sodium 500 Chloride 0.9% 500 ml @ 333.3 mls/hr IV Q12H [facility] Rx#: [id number] Oral [id number] Output: Urine Catheter Amount 525 Void Amount 1475 2625 450 Other: Meal Lunch Dinner Percent of Meal Consumed 100% 100% Feeding Ability Independent Independent Urine Appearance Clear Cloudy Urine Color Pale Pale Urine Odor Strong Stool Size Moderate Stool Color Brown Stool Consistency Soft Formed # Voids 1 1 # Bowel Movements 1 General appearance: no acute distress, obese Exam: Doing well nonlabored breathing Minimal anxiety Postoperative dressing right foot Medical - PN: Obj Da - Labs CBC & Chem 7: 09/06/18 04:26 09/06/18 04:26 Labs: Abnormal Lab Results 09/05/18 09/05/18 09/04/18 09:22 04:43 03:56 WBC 12.6 H RDW 17.0 H Lymphocytes % 14 L RBC Morphology Anisocytosis 1+ A Glucose 187 H Hemoglobin A1c 9.2 H GGT 60 H Lactate Dehydrogenase 271 H Albumin 3.1 L Albumin/Globulin Ratio 0.9 L 09/04/18 09/04/18 03:56 03:56 WBC 12.4 H RDW 17.4 H Lymphocytes % RBC Morphology Abnorm A Anisocytosis 1+ A Glucose 212 H Hemoglobin A1c GGT 63 H Lactate Dehydrogenase Albumin Albumin/Globulin Ratio Meds: Medications Acetaminophen (Tylenol) 650 mg PO Q4-6HP PRN PRN Reason: PAIN/FEVER > 101 Last Admin: 09/04/18 16:48 Dose: 650 mg Documented by: Hydrocodone Bitart/Acetaminophen ([place] 10/325mg) 1 - 2 tab PO Q4-6HP PRN PRN Reason: Pain Albuterol Sulfate (Ventolin) 2 puff INH Q4HP PRN PRN Reason: Shortness Of Breath Last Admin: 09/05/18 01:59 Dose: 2 puff Documented by: Amitriptyline HCl (Elavil) 75 mg PO HS [facility] Last Admin: 09/04/18 20:59 Dose: 75 mg Documented by: Apixaban (Eliquis) 5 mg PO BID [facility] Cefepime HCl (Maxipime) 2 gm IV Q8H [facility]; Protocol Last Admin: 09/05/18 17:20 Dose: 2 gm Documented by: Dextrose (Dextrose 50%) 0 ml IV UD PRN PRN Reason: Hypoglycemia Diagnostic Test (Pha) (Accu-Chek) 1 each FS [facility] Last Admin: 09/05/18 17:16 Dose: 1 each Documented by: Docusate Sodium (Colace) 100 mg PO BID [facility] Last Admin: 09/05/18 09:32 Dose: 100 mg Documented by: Fluoxetine HCl (Prozac) 40 mg PO DAILY [facility] Last Admin: 09/05/18 09:32 Dose: 40 mg Documented by: Furosemide (Lasix) 40 mg PO DAILY [facility] Last Admin: 09/05/18 09:33 Dose: 40 mg Documented by: Glucose (Insta-Glucose) 15 gm PO PRN PRN PRN Reason: Hypoglycemia Guaifenesin/Codeine Phosphate (Robitussin Ac) 10 ml PO Q4HP PRN PRN Reason: Cough Vancomycin HCl 1,500 mg/ (Sodium Chloride) 500 mls @ 333.3 mls/hr IV Q12H [facility] Last Admin: 09/05/18 10:53 Dose: 333.3 mls/hr Documented by: Insulin Glargine (Lantus) 60 unit SQ BID [facility] Last Admin: 09/05/18 09:30 Dose: 60 units Documented by: Insulin Human Lispro (Humalog) 0 unit SQ [facility]; Protocol Last Admin: 09/05/18 17:15 Dose: 1 units Documented by: Insulin Human Lispro (Humalog) 25 unit SQ AC [facility] Last Admin: 09/05/18 17:15 Dose: 25 units Documented by: Iron Carb/Multivit/[employer]/Folic Acid (Multivitamin W/Minerals) 1 tab PO DAILY [facility] Last Admin: 09/05/18 09:33 Dose: 1 tab Documented by: Metformin HCl (Glucophage) 1,000 mg PO BIDCC [facility] Last Admin: 09/05/18 17:14 Dose: 1,000 mg Documented by: Omeprazole (Prilosec) 40 mg PO ACB [facility] Last Admin: 09/05/18 07:53 Dose: 40 mg Documented by: Ondansetron HCl (Zofran) 4 mg IV Q4-6HP PRN PRN Reason: Nausea And Vomiting Potassium Chloride (Kdur) 10 meq PO QAMCC [facility] Last Admin: 09/05/18 09:34 Dose: 10 meq Documented by: Risperidone (Risperdal) 6 mg PO BID [facility] Last Admin: 09/05/18 10:57 Dose: 6 mg Documented by: Senna/Docusate Sodium (Senna Plus Tablet) 1 tab PO [facility] Last Admin: 09/04/18 21:00 Dose: Not Given Documented by: Sitagliptin Phosphate (Januvia) 50 mg PO DAILY [facility] Last Admin: 09/05/18 09:32 Dose: 50 mg Documented by: Sodium Chloride (Saline Flush) 10 ml IV Q8 [facility] Last Admin: 09/05/18 12:30 Dose: 10 ml Documented by: Tamsulosin HCl (Flomax) 0.4 mg PO [facility] Last Admin: 09/04/18 20:59 Dose: 0.4 mg Documented by: Trazodone HCl (Desyrel) 50 mg PO HSP PRN PRN Reason: Insomnia Last Admin: 09/03/18 21:23 Dose: 50 mg Documented by: Vancomycin HCl (Vancomycin Per Pharmacy) 1 order IV UD [facility] Zolpidem Tartrate (Ambien) 5 mg PO QHS [facility] Last Admin: 09/04/18 21:01 Dose: 5 mg Documented by: Medical - PN: A/P - Time Spent With Patient Total time spent is greater than 50% in coordination of care (as documented) at patient's floor/unit and/or counseling patient: 25 - 35 minutes (1) Diabetic foot infection Status: Chronic Assessment and plan: * Right big toe osteomyelitis -postop day 1 amputation. On antibiotic coverage as per ID cefepime and vancomycin * Anxiety disorder managed on home dose fluoxetine * Hypertension continue RADHA inhibitor * DM type II continue basal prandial insulin/sitagliptin/metformin * Neuropathy continue amitriptyline * History of COPD continue bronchodilators * Recently diagnosed lung mass status post biopsy. Biopsy results reveals adenocarcinoma pulmonary origin. Case discussed with pulmonary. Recommends follow-up oncology as outpatient. * Anticoagulation-on Apixiban * History of GERD on PPI * Full code Plan * Continue antibiotic coverage per ID * Continue anticoagulation * Outpatient oncology follow-up for adenocarcinoma lung management * Pre-existing medical condition management to continue as above * Discharge planning per case management and likely transfer to [facility] Current Visit: Yes Medical - PN: Qual - VTE Deep Vein Thrombosis/Pulmonary Embolism Present on Admission: No
[2018-09-05] MEDS: SENNOSIDES/DOCUSATE SODIUM 1 TAB TABLET PO SCH (21:26)
[2018-09-05] MEDS: AMITRIPTYLINE 25 MG TABLET PO SCH (21:26)
[2018-09-05] MEDS: TAMSULOSIN 0.4 MG CAPSULE PO SCH (21:27)
[2018-09-05] MEDS: APIXABAN 5 MG TABLET PO SCH (21:27)
[2018-09-05] MEDS: ZOLPIDEM 5 MG TABLET PO SCH (21:27)
[2018-09-06] MEDS: ALBUTEROL SULFATE 1 PUFF INHALER INH PRN (00:41)
[2018-09-06] MEDS ORDERED: CEFEPIME 1 GM VIAL ONE (03:52)
[2018-09-06] MEDS: CEFEPIME 2 GM VIAL IV SCH ×3 (05:14→21:59)
[2018-09-06] MEDS: 0.9 % SODIUM CHLORIDE 10 ML SYRINGE IV SCH ×3 (05:14→22:04)
[2018-09-06 05:41] LABS: Mean Cell Volume 88.1 fL (80.0-100.0); Mean Corpuscular HGB Conc 32.1 g/dL (31.0-36.0); Platelet Count 261 K/mcL (140-440); RBC 4.19 M/mcL (4.00-5.20); Red Cell Distribution Width 16.8 % (11.5-14.5)
[2018-09-06 05:48] LABS: ALT/SGPT 29 U/l (0-40); Albumin 3.1 gm/dL (3.2-5.2); Alkaline Phosphatase 106 U/L (39-117); Bilirubin,Direct < 0.2 mg/dL (0.0-0.3); Blood Urea Nitrogen 13 mg/dl (8-23); Gamma Glutamyl Transpeptidase 58 U/L (5-36); Uric Acid 6.2 mg/dL (2.5-8.0)
[2018-09-06 08:06] LABS: Anisocytosis 1+ (NONE SEEN); Eosinophils % (Manual) 1 % (0-7); Lymphocytes % 19 % (15-49); Monocytes % (Manual) 7 % (1-12); Platelet Estimate NORMAL (NORMAL); RBC Morphology ABNORM (NORMAL); Segmented Neutrophils % 73 % (38-78)
[2018-09-06] MEDS: FLUoxetine HCL 20 MG CAPSULE PO SCH (08:15)
[2018-09-06] MEDS: INSULIN GLARGINE, HUMAN 1 UNIT/0.01 ML SQ SCH ×2 (08:16→22:02)
[2018-09-06] MEDS: INSULIN LISPRO 1 UNIT/0.01 ML UNIT SQ SCH ×7 (08:16→22:03)
[2018-09-06] MEDS: MULTIVIT,THER IRON,CA,FA & MIN 1 TABLET PO SCH (08:17)
[2018-09-06] MEDS: metFORMIN 500 MG TABLET PO SCH ×2 (08:18→16:49)
[2018-09-06] MEDS: POTASSIUM CHLORIDE 10 MEQ TABLET PO SCH (08:18)
[2018-09-06] MEDS: OMEPRAZOLE 20 MG CAPSULE PO SCH (08:18)
[2018-09-06] MEDS: APIXABAN 5 MG TABLET PO SCH ×2 (08:18→22:01)
[2018-09-06] MEDS: DOCUSATE SODIUM 100 MG CAPSULE PO SCH ×2 (08:18→22:01)
[2018-09-06] MEDS: FUROSEMIDE 40 MG TABLET PO SCH (08:18)
[2018-09-06] MEDS: risperiDONE 1 MG TABLET PO SCH ×2 (08:19→22:00)
[2018-09-06] MEDS: sitaGLIPtin 50 MG TABLET PO SCH (08:19)
[2018-09-06] MEDS: ARIPIPRAZOLE 20 MG TABLET PO SCH (08:20)
[2018-09-06] MEDS: VANCOMYCIN 1,500 MG in 0.9 % SODIUM CHLORIDE 500 ML IV SCH ×2 (09:34→22:00)
[2018-09-06] MEDS ORDERED: LOPERAMIDE 2 MG CAPSULE PO PRN (09:50)
--- NOTE | 2018-09-06 10:55 | Internal Med Progress Note ---
Medical - PN: Subj Patient information: Note initiated : 09/06/18 at 10:53 am Service Date, if different from initiated Date: [] Patient: Lizeth Newberry a 63 y/o F admitted on 09/03/18 for Right Great Toe Infection. Chief Complaint: [] Interval history: Ms. Newberry is a 63 year old F with a history of poorly controlled diabetes/diabetic neuropathy/foot ulcers who presents from [facility] emergency room after she presented there with increasing right big toe/distal foot swelling redness and discharge that she notices this morning along with a foul swelling order. Patient is a known diabetic with neuropathy. She endorses to poor blood sugar control. She has been following up with wound care for a year and a half for right foot ulcer secondary diabetic neuropathy. We'll last couple of days around the base of big toe she has noted increasing redness. This morning she found foul-smelling discharge soaking the Band-Aid. He subsequently went to the ER. Initial workup was consistent with cellulitis. Orthopedics was consulted and patient was requested to be transferred to [facility] for further evaluation and management and likely surgical amputation At the time of evaluation patient is accompanied with her Ray. She denies active distress, fever, chills, sweats. She denies diarrhea dysuria, sk in rash, joint pain, arthralgia myalgia. 09/04-patient doing well. No overnight events. No concerns per staff. Orthopedics consulted and scheduled for amputation right great toe today. On antibiotic coverage including Rocephin/vancomycin. White count at 12,000. A1c 9.2 indicative of poor outpatient diabetes controlled. 09/05- ray taken postop day 1. No overnight events. On antibiotic coverage. ID consulted. Patient will transition to swing bed at [place] on discharge. 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 Case discussed with pulmonology and recommends outpatient oncology follow-up. Biopsy findings/discussion with pulmonology and recommendations were relayed to patient. 09/06- await bone biopsy/culture results. Plan is discharge in 24 hours to swing bed at [place] once antibiotics can be de-escalate based on culture se nsitivity as per ID specialist. Patient will need outpatient oncology follow-up in light of possible lung biopsy for adenocarcinoma of pulmonary region. Continue anticoagulation/pre-existing medical issue management on home meds - Constitutional Vitals: Vital Signs Temp Pulse Resp BP Pulse Ox 97.9 F 101 H 20 135/69 91 09/06/18 07:18 09/06/18 07:18 09/06/18 07:18 09/06/18 07:18 09/06/18 07:18 Period Temp Pulse Resp BP Sys/Madrigal Pulse Ox Last 24 Hr 97.1 F-98.5 F 84-101 16-24 120-155/66-81 90-95 Intake and Output 09/05/18 09/06/18 09/06/18 21:59 05:59 13:59 Intake Total 1600 1000 740 Output Total 7821 665 6107 Balance 225 700 -1410 Weight 313 lb 8 oz Intake & Output: Intake & Output 09/05/18 09/06/18 09/06/18 21:59 05:59 13:59 Intake Total 1600 1000 740 Output Total 3942 132 0029 Balance 225 700 -1410 Weight 313 lb 8 oz Intake: IV 500 Vancomycin 1,500 mg In Sodium 500 Chloride 0.9% 500 ml @ 333.3 mls/hr IV Q12H [facility] Rx#: [id number] Oral 1600 500 740 Output: Urine Catheter Amount 525 Void Amount 850 300 750 Urine/Stool Mix 1400 Other: Meal HS snack Breakfast Percent of Meal Consumed 100% 100% Feeding Ability Independent Independent Urine Appearance Clear Clear Clear Urine Color Straw Bright Yellow Bright Yellow Urine Odor Normal Strong Stool Size Smear Moderate Stool Color Brown Brown Stool Consistency Loose # Voids 1 1 # Bowel Movements 1 # of times incontinent of 1 Bowels General appearance: no acute distress, obese Exam: Nonlabored breathing Sitting on chair No anxiety Minimal Lymphedema Medical - PN: Obj Da - Labs CBC & Chem 7: 09/06/18 04:26 09/06/18 04:26 Labs: Abnormal Lab Results 09/06/18 09/06/18 09/05/18 04:26 04:26 09:22 WBC 13.4 H 12.6 H Hgb 11.9 L RDW 16.8 H 17.0 H Lymphocytes % 14 L RBC Morphology Abnorm A Polychromasia 1+ A Anisocytosis 1+ A 1+ A Glucose 155 H Hemoglobin A1c Calcium 8.4 L GGT 58 H Lactate Dehydrogenase 256 H Albumin 3.1 L Albumin/Globulin Ratio 09/05/18 09/04/18 09/04/18 04:43 03:56 03:56 WBC Hgb RDW Lymphocytes % RBC Morphology Polychromasia Anisocytosis Glucose 187 H 212 H Hemoglobin A1c 9.2 H Calcium GGT 60 H 63 H Lactate Dehydrogenase 271 H Albumin 3.1 L Albumin/Globulin Ratio 0.9 L 09/04/18 03:56 WBC 12.4 H Hgb RDW 17.4 H Lymphocytes % RBC Morphology Abnorm A Polychromasia Anisocytosis 1+ A Glucose Hemoglobin A1c Calcium GGT Lactate Dehydrogenase Albumin Albumin/Globulin Ratio Meds: Medications Acetaminophen (Tylenol) 650 mg PO Q4-6HP PRN PRN Reason: PAIN/FEVER > 101 Last Admin: 09/04/18 16:48 Dose: 650 mg Documented by: Hydrocodone Bitart/Acetaminophen ([place] 10/325mg) 1 - 2 tab PO Q4-6HP PRN PRN Reason: Pain Albuterol Sulfate (Ventolin) 2 puff INH Q4HP PRN PRN Reason: Shortness Of Breath Last Admin: 09/06/18 00:41 Dose: 2 puff Documented by: Amitriptyline HCl (Elavil) 75 mg PO HS [facility] Last Admin: 09/05/18 21:26 Dose: 75 mg Documented by: Apixaban (Eliquis) 5 mg PO BID [facility] Last Admin: 09/06/18 08:18 Dose: 5 mg Documented by: Cefepime HCl (Maxipime) 2 gm IV Q8H [facility]; Protocol Last Admin: 09/06/18 05:14 Dose: 2 gm Documented by: Dextrose (Dextrose 50%) 0 ml IV UD PRN PRN Reason: Hypoglycemia Diagnostic Test (Pha) (Accu-Chek) 1 each FS ACHS [facility] Last Admin: 09/06/18 08:17 Dose: 1 each Documented by: Docusate Sodium (Colace) 100 mg PO BID [facility] Last Admin: 09/06/18 08:18 Dose: 100 mg Documented by: Fluoxetine HCl (Prozac) 40 mg PO DAILY [facility] Last Admin: 09/06/18 08:15 Dose: 40 mg Documented by: Furosemide (Lasix) 40 mg PO DAILY [facility] Last Admin: 09/06/18 08:18 Dose: 40 mg Documented by: Glucose (Insta-Glucose) 15 gm PO PRN PRN PRN Reason: Hypoglycemia Guaifenesin/Codeine Phosphate (Robitussin Ac) 10 ml PO Q4HP PRN PRN Reason: Cough Vancomycin HCl 1,500 mg/ (Sodium Chloride) 500 mls @ 333.3 mls/hr IV Q12H [facility] Last Admin: 09/06/18 09:34 Dose: 333.3 mls/hr Documented by: Insulin Glargine (Lantus) 60 unit SQ BID [facility] Last Admin: 09/06/18 08:16 Dose: 60 units Documented by: Insulin Human Lispro (Humalog) 0 unit SQ ACHS [facility]; Protocol Last Admin: 09/06/18 08:16 Dose: 2 units Documented by: Insulin Human Lispro (Humalog) 25 unit SQ AC [facility] Last Admin: 09/06/18 08:17 Dose: 25 units Documented by: Iron Carb/Multivit/[place]/Folic Acid (Multivitamin W/Minerals) 1 tab PO DAILY [facility] Last Admin: 09/06/18 08:17 Dose: 1 tab Documented by: Loperamide HCl (Imodium) 2 mg PO PRN PRN PRN Reason: Diarrhea Last Admin: 09/06/18 10:18 Dose: 2 mg Documented by: Metformin HCl (Glucophage) 1,000 mg PO BIDCC [facility] Last Admin: 09/06/18 08:18 Dose: 1,000 mg Documented by: Omeprazole (Prilosec) 40 mg PO ACB [facility] Last Admin: 09/06/18 08:18 Dose: 40 mg Documented by: Ondansetron HCl (Zofran) 4 mg IV Q4-6HP PRN PRN Reason: Nausea And Vomiting Potassium Chloride (Kdur) 10 meq PO QAMCC [facility] Last Admin: 09/06/18 08:18 Dose: 10 meq Documented by: Risperidone (Risperdal) 6 mg PO BID [facility] Last Admin: 09/06/18 08:19 Dose: 6 mg Documented by: Senna/Docusate Sodium (Senna Plus Tablet) 1 tab PO HS [facility] Last Admin: 09/05/18 21:26 Dose: 1 tab Documented by: Sitagliptin Phosphate (Januvia) 50 mg PO DAILY [facility] Last Admin: 09/06/18 08:19 Dose: 50 mg Documented by: Sodium Chloride (Saline Flush) 10 ml IV Q8 [facility] Last Admin: 09/06/18 05:14 Dose: 10 ml Documented by: Tamsulosin HCl (Flomax) 0.4 mg PO HS [facility] Last Admin: 09/05/18 21:27 Dose: 0.4 mg Documented by: Trazodone HCl (Desyrel) 50 mg PO HSP PRN PRN Reason: Insomnia Last Admin: 09/03/18 21:23 Dose: 50 mg Documented by: Vancomycin HCl (Vancomycin Per Pharmacy) 1 order IV UD [facility] Zolpidem Tartrate (Ambien) 5 mg PO QHS [facility] Last Admin: 09/05/18 21:27 Dose: 5 mg Documented by: Medical - PN: A/P - Time Spent With Patient Total time spent is greater than 50% in coordination of care (as documented) at patient's floor/unit and/or counseling patient: 25 - 35 minutes (1) Diabetic foot infection Status: Chronic Assessment and plan: * Right big toe osteomyelitis -postop day 2 amputation. Continue antibiotic coverage as per ID cefepime and vancomycin * Anxiety disorder managed on home dose fluoxetine * Hypertension well controlled on RADHA inhibitor * DM type II continue basal prandial insulin/sitagliptin/metformin * Neuropathy continue amitriptyline * History of COPD continue bronchodilators * Recently diagnosed lung mass status post biopsy. Biopsy results reveals adenocarcinoma pulmonary origin. Case discussed with pulmonary. Recommends follow-up oncology as outpatient. * Anticoagulation-on Apixiban * History of GERD on PPI * Full code Plan * Continue antibiotic coverage per ID * Outpatient oncology follow-up for adenocarcinoma lung management to be scheduled by PCP/[facility] on discharge * Pre-existing medical condition management to continue as above * Discharge planning per case management and likely transfer to swing bed status at [facility] Current Visit: Yes Medical - PN: Qual - VTE Deep Vein Thrombosis/Pulmonary Embolism Present on Admission: No
[2018-09-06] MEDS ORDERED: CYCLOBENZAPRINE 10 MG TABLET PO PRN (17:58)
--- NOTE | 2018-09-06 20:17 | General Surgery Progress Note ---
Subjective Patient reports: other (Following patient after surgery. Doing well. Dressings CDI. ID note seen.) Narrative: Note initiated : 09/06/18 at 8:14 pm Service Date, if different from initiated Date: [] Patient: Lizeth Newberry 63 y/o F admitted on 09/03/18 for Right Great Toe Infection. Chief Complaint: [] Objective Temp Pulse Resp BP Pulse Ox 98.3 F 83 20 136/70 92 09/06/18 18:36 09/06/18 18:36 09/06/18 18:36 09/06/18 18:36 09/06/18 18:36 AVSS. No changes DEISI. Dressings Right foot CDI - Additional Data Intake & Output - Last 24 hours: Intake & Output 09/04/18 09/05/18 09/06/18 09/07/18 05:59 05:59 05:59 05:59 Intake Total 440 5030 3900 3320 Output Total 1500 2826 4300 5350 Balance -1060 2204 -400 -2030 Weight 309 lb 312 lb 8 oz 313 lb 8 oz 313 lb 8 oz - Labs 09/06/18 04:26 09/06/18 04:26 Diabetes panel 09/06/18 Range/Units 04:26 Sodium 136 (133-145) mmol/L Potassium 3.9 (3.3-5.1) mmol/L Chloride 101 (96-108) mmol/L Carbon Dioxide 23 (22-30) mmol/L BUN 13 (8-23) mg/dl Creatinine 0.8 (0.6-1.1) mg/dl Glucose 155 H (70-105) mg/dL Calcium 8.4 L (8.6-10.4) mg/dl AST 19 (0-37) U/l ALT 29 (0-40) U/l Alkaline Phosphatase 106 (39-117) U/L Total Protein 6.1 (5.9-8.4) gm/dL Albumin 3.1 L (3.2-5.2) gm/dL Triglycerides 101 (<150) mg/dl Calcium panel 09/06/18 Range/Units 04:26 Calcium 8.4 L (8.6-10.4) mg/dl Phosphorus 3.9 (2.7-4.5) mg/dL Albumin 3.1 L (3.2-5.2) gm/dL Pituitary panel 09/06/18 Range/Units 04:26 Sodium 136 (133-145) mmol/L Potassium 3.9 (3.3-5.1) mmol/L Chloride 101 (96-108) mmol/L Carbon Dioxide 23 (22-30) mmol/L BUN 13 (8-23) mg/dl Creatinine 0.8 (0.6-1.1) mg/dl Glucose 155 H (70-105) mg/dL Calcium 8.4 L (8.6-10.4) mg/dl Adrenal panel 09/06/18 Range/Units 04:26 Sodium 136 (133-145) mmol/L Potassium 3.9 (3.3-5.1) mmol/L Chloride 101 (96-108) mmol/L Carbon Dioxide 23 (22-30) mmol/L BUN 13 (8-23) mg/dl Creatinine 0.8 (0.6-1.1) mg/dl Glucose 155 H (70-105) mg/dL Calcium 8.4 L (8.6-10.4) mg/dl Total Bilirubin 0.4 (0.0-1.0) mg/dL AST 19 (0-37) U/l ALT 29 (0-40) U/l Alkaline Phosphatase 106 (39-117) U/L Total Protein 6.1 (5.9-8.4) gm/dL Albumin 3.1 L (3.2-5.2) gm/dL Assessment and Plan (1) Sepsis due to other etiology Status: Acute Current Visit: Yes (2) Diabetic foot infection Status: Chronic Current Visit: Yes - Time Spent With Patient Total time spent is greater than 50% in coordination of care (as documented) at patient's floor/unit and/or counseling patient: Assessment: Satisfactory post surgical progress. Plan: Await primary dressing change by ORTHO. Will see from wound are point of view as needed. THANKS. less than 15 minutes
[2018-09-06] MEDS: ZOLPIDEM 5 MG TABLET PO SCH (22:01)
[2018-09-06] MEDS: TAMSULOSIN 0.4 MG CAPSULE PO SCH (22:01)
[2018-09-06] MEDS: AMITRIPTYLINE 25 MG TABLET PO SCH (22:01)
[2018-09-06] MEDS: SENNOSIDES/DOCUSATE SODIUM 1 TAB TABLET PO SCH (22:02)
[2018-09-07] MEDS: CEFEPIME 2 GM VIAL IV SCH (05:18)
[2018-09-07] MEDS: 0.9 % SODIUM CHLORIDE 10 ML SYRINGE IV SCH (05:19)
[2018-09-07 06:36] LABS: Mean Cell Volume 87.3 fL (80.0-100.0); Mean Corpuscular HGB Conc 32.1 g/dL (31.0-36.0); Platelet Count 252 K/mcL (140-440); RBC 4.46 M/mcL (4.00-5.20); Red Cell Distribution Width 16.9 % (11.5-14.5)
[2018-09-07 06:37] LABS: ALT/SGPT 29 U/l (0-40); Albumin/Globulin Ratio 0.9 (1.0-2.3); Alkaline Phosphatase 114 U/L (39-117); Bilirubin,Direct < 0.2 mg/dL (0.0-0.3); Blood Urea Nitrogen 14 mg/dl (8-23); Gamma Glutamyl Transpeptidase 53 U/L (5-36); Uric Acid 6.6 mg/dL (2.5-8.0)
[2018-09-07] MEDS: OMEPRAZOLE 20 MG CAPSULE PO SCH (07:00)
[2018-09-07] MEDS: metFORMIN 500 MG TABLET PO SCH (07:28)
[2018-09-07] MEDS: POTASSIUM CHLORIDE 10 MEQ TABLET PO SCH (07:28)
[2018-09-07] MEDS: INSULIN LISPRO 1 UNIT/0.01 ML UNIT SQ SCH ×4 (07:28→11:38)
[2018-09-07 07:54] LABS: Anisocytosis 1+ (NONE SEEN); Band Neutrophils % 2 % (0-10); Basophils % (Manual) 1 % (0-2); Eosinophils % (Manual) 2 % (0-7); Lymphocytes % 12 % (15-49); Monocytes % (Manual) 3 % (1-12); Platelet Estimate NORMAL (NORMAL); RBC Morphology ABNORM (NORMAL); Segmented Neutrophils % 80 % (38-78)
[2018-09-07] MEDS ORDERED: AMOXICILLIN 250 MG CAPSULE PO ONE (08:55)
[2018-09-07] MEDS: FLUoxetine HCL 20 MG CAPSULE PO SCH (09:33)
[2018-09-07] MEDS: sitaGLIPtin 50 MG TABLET PO SCH (09:33)
[2018-09-07] MEDS: DOCUSATE SODIUM 100 MG CAPSULE PO SCH (09:34)
[2018-09-07] MEDS: risperiDONE 1 MG TABLET PO SCH (09:34)
[2018-09-07] MEDS: APIXABAN 5 MG TABLET PO SCH (09:34)
[2018-09-07] MEDS: MULTIVIT,THER IRON,CA,FA & MIN 1 TABLET PO SCH (09:34)
[2018-09-07] MEDS: INSULIN GLARGINE, HUMAN 1 UNIT/0.01 ML SQ SCH (09:35)
[2018-09-07] MEDS: FUROSEMIDE 40 MG TABLET PO SCH (09:35)
[2018-09-07] MEDS: VANCOMYCIN 1,500 MG in 0.9 % SODIUM CHLORIDE 500 ML IV SCH (09:38)
[2018-09-07] MEDS: ARIPIPRAZOLE 20 MG TABLET PO SCH (09:41)
--- NOTE | 2018-09-07 09:46 | Discharge Summary ---
Medical - DS: Prov Patient information: Note initiated : 09/07/18 at 9:42 am Service Date, if different from initiated Date: [] Patient: Lizeth Newberry 63 y/o F admitted on 09/03/18 for Right Great Toe Infection. Chief Complaint: [] Date of admission: 09/03/18 14:43 Discharge date: 09/07/18 Primary care physician: PILAR Sampson Consults: 09/03/18 18:18 Consult to Physician [CONS] Routine Comment: Consulting Provider: Leonel Gilbert Reason For Exam: Physician to Consult 09/03/18 18:25 Consult to Physician [CONS] Routine Comment: Consulting Provider: Oswaldo Saba Reason For Exam: infection big toe right 09/05/18 13:20 Consult to Physician [CONS] Routine Comment: Consulting Provider: Bg Gorodn Reason For Exam: Physician to Consult Medical - DS: Meds - Discharge Medications Prescriptions: Doxycycline Hyclate [Morgidox] 100 mg PO BID #84 cap Moxifloxacin HCl [Avelox] 400 mg PO DAILY #42 tab Active and Home Medications: Home Medications aripiprazole 30 mg tablet 30 mg PO DAILY 30 Days #30 02/12/15 [History Confirmed 09/03/18 Last Taken 09/01/18 09:00] fluoxetine 20 mg capsule 40 mg PO DAILY 30 Days #60 02/12/15 [History Confirmed 09/03/18 Last Taken 09/03/18 10:40] potassium chloride ER 10 mEq tablet,extended release 10 meq PO [facility] 30 Days #30 02/12/15 [History Confirmed 09/03/18 Last Taken 09/01/18] amitriptyline 75 mg tablet 75 mg PO HS 06/27/18 [History Confirmed 09/03/18 Last Taken Unknown] apixaban 5 mg tablet 5 mg PO BID 06/27/18 [History Confirmed 09/03/18 Last Taken 09/01/18 09:00] insulin glargine (U-100) 100 unit/mL (3 mL) subcutaneous pen 60 unit SUB-Q BID ml 06/27/18 [History Confirmed 09/04/18 Last Taken 09/02/18 21:00] metformin 1,000 mg tablet 1,000 mg PO BID 06/27/18 [History Confirmed 09/03/18 Last Taken 09/01/18 09:00] sitagliptin 50 mg tablet 50 mg PO DAILY 06/27/18 [History Confirmed 09/03/18 Last Taken 09/01/18 09:00] zolpidem 5 mg tablet 5 mg PO QHS 06/27/18 [History Confirmed 09/03/18 Last Taken 08/31/18 21:00] Furosemide [Lasix] 40 mg PO DAILY 09/03/18 [History Confirmed 09/03/18 Last Taken 09/03/18 09:00] Omeprazole 40 mg PO ACB 09/03/18 [History Confirmed 09/03/18 Last Taken 09/03/18 09:00] Tamsulosin [Flomax] 0.4 mg PO HS 09/03/18 [History Confirmed 09/03/18 Last Taken 08/31/18 21:00] Albuterol Sulfate [Proair Hfa] 2 puff INH Q4HP PRN 09/04/18 [History Confirmed 09/04/18 Last Taken Unknown] Novolog 24 - 49 units SQ ACB 09/04/18 [History Confirmed 09/04/18 Last Taken Unknown] Novolog 36 - 49 units SQ 1200 09/04/18 [History Confirmed 09/04/18 Last Taken Unknown] Novolog 39 - 49 units SQ 1700 09/04/18 [History Confirmed 09/04/18 Last Taken Unknown] risperiDONE [Risperdal] 6 mg PO BID 09/04/18 [History Confirmed 09/04/18 Last Taken Unknown] Doxycycline Hyclate [Morgidox] 100 mg PO BID #84 cap 09/07/18 [Rx Last Taken Unknown] Moxifloxacin HCl [Avelox] 400 mg PO DAILY #42 tab 09/07/18 [Rx Last Taken Unknown] Medical - DS: Hosp Hospital course: Discharge diagnoses * Right big toe osteomyelitis -postop day 3 amputation. Continue antibiotic coverage as per ID , Descalated to doxycycline and moxifloxacin to be continued for 6 weeks as per ID. Patient will need every other week CBC/BMP/ESR/CRP and a 4-week follow-up with infectious disease specialist * Anxiety disorder managed on home dose fluoxetine * Hypertension well controlled on RADHA inhibitor * DM type II continue basal prandial insulin/sitagliptin/metformin * Neuropathy continue amitriptyline * History of COPD continue bronchodilators * Recently diagnosed lung mass status post biopsy. Biopsy results reveals adenocarcinoma pulmonary origin. Case discussed with pulmonary Dr. Donis and recommends follow-up oncology as outpatient CINDY. * Anticoagulation-on Apixiban * History of GERD on PPI Brief hospital course Ms. Newberry is a 63 year old F with a history of poorly controlled diabetes/diabetic neuropathy/foot ulcers who presents from [facility] emergency room after she presented there with increasing right big toe/distal foot swelling redness and discharge that she notices this morning along with a foul swelling order. Patient is a known diabetic with neuropathy. She endorses to poor blood sugar control. She has been following up with wound care for a year and a half for right foot ulcer secondary diabetic neuropathy. We'll last couple of days around the base of big toe she has noted increasing redness. This morning she found foul-smelling discharge soaking the Band-Aid. He subsequently went to the ER. Initial workup was consistent with cellulitis. Orthopedics was consulted and patient was requested to be transferred to [facility] for further evaluation and management and likely surgical amputation At the time of evaluation patient is accompanied with her Ray. She denies active distress, fever, chills, sweats. She denies diarrhea dysuria, skin rash, joint pain, arthralgia myalgia. 09/04-patient doing well. No overnight events. No concerns per staff. Orthopedics consulted and scheduled for amputation right great toe today. On antibiotic coverage including Rocephin/vancomycin. White count at 12,000. A1c 9.2 indicative of poor outpatient diabetes controlled. 09/05- ray taken postop day 1. No overnight events. On antibiotic coverage. ID consulted. Patient will transition to swing bed at [place] on discharge. 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 Case discussed with pulmonology and recommends outpatient oncology follow-up. Biopsy findings/discussion with pulmonology and recommendations were relayed to patient. 09/06- await bone biopsy/culture results. Plan is discharge in 24 hours to swing bed at [facility] once antibiotics can be de-escalate based on culture sensitivity as per ID specialist. Patient will need outpatient oncology follow- up in light of possible lung biopsy for adenocarcinoma of pulmonary region. Continue anticoagulation/pre-existing medical issue management on home meds 4/12-patient clinically better. Her IV continue antibiotics for additional 6 weeks on moxifloxacin 400 daily along with doxycycline 100 twice a day. Patient will need follow-up with oncology/primary care physician as outpatient along with wound care. Continue aggressive PT OT. Patient transferring to swing bed at [facility] detailed discharge instructions and recommendations as below Discharge diagnosis: . - Time Spent with Patient Total time spent providing and/or coordinating discharge services: Greater than 30 minutes Medical - DS: Exam - Constitutional Vitals: Vital Signs Temp Pulse Pulse Resp BP BP Pulse Ox 09/07/18 06:58 97.5 F 92 H 16 139/68 90 09/07/18 03:55 97.7 F 88 18 119/53 94 09/07/18 00:10 98.7 F 84 20 122/65 91 09/06/18 18:36 98.3 F 83 20 136/70 92 09/06/18 16:41 116/64 09/06/18 16:00 98.0 F 81 20 96/56 91 09/06/18 12:00 98.2 F 84 22 130/74 94 Intake and Output 09/06/18 09/07/18 09/07/18 21:59 05:59 13:59 Intake Total 2080 2240 470 Output Total 0952 370 6645 Balance 580 1465 -1380 Intake: IV 500 Vancomycin 1,500 mg In Sodium 500 Chloride 0.9% 500 ml @ 333.3 mls/hr IV Q12H [facility] Rx#: [id number] Oral 2080 1740 470 Output: Void Amount 9311 116 3071 Other: Meal Dinner tuna sandwich Breakfast Percent of Meal Consumed 100% 100% 100% Feeding Ability Independent Urine Appearance Clear Clear Urine Color Bright Yellow Bright Yellow Light Jo-[place] Urine Odor Normal Strong Weight 316 lb 8 oz Medical - DS: Data Labs on day of discharge: Labs from last 24 hours 09/07/18 09/07/18 04:58 04:58 WBC 14.4 H RBC 4.46 Hgb 12.5 Hct 38.9 MCV 87.3 MCH 28.0 MCHC 32.1 RDW 16.9 H Plt Count 252 MPV 8.3 Total Counted 100 Seg Neutrophils % 80 H Band Neutrophils % 2 Lymphocytes % 12 L Monocytes % (Manual) 3 Eosinophils % (Manual) 2 Basophils % (Manual) 1 Platelet Estimate Normal RBC Morphology Abnorm A Anisocytosis 1+ A Sodium 132 L Potassium 4.4 Chloride 99 Carbon Dioxide 19 L Anion Gap 14.0 BUN 14 Creatinine 0.8 GFR Calculation 80 Glucose 226 H Uric Acid 6.6 Calcium 8.5 L Phosphorus 3.8 Magnesium 1.7 Total Bilirubin 0.4 Direct Bilirubin < 0.2 GGT 53 H AST 22 ALT 29 Alkaline Phosphatase 114 Lactate Dehydrogenase 321 H Total Protein 6.3 Albumin 3.0 L Globulin 3.3 Albumin/Globulin Ratio 0.9 L Triglycerides 114 Preliminary micro results at discharge 09/04/18 12:36 Anaerobic Culture - Preliminary Toe - [facility] - DS: A/P - Patient/Caregiver Discharge Instructions Activity: as per physical therapy, increase activity as tolerated Diet: Consistent Carbohydrate Additional Instructions: Weight bearing on right lower extremity with post op shoe, try to keep walking to minimum for next two weeks. starting 09/07/18 daily dressing changes with gauze. Elevate leg for pain and swelling. Follow-up PCP in 5 days Follow-up with Oncology for evaluation of adenocarcinoma lung at the earliest possible date Follow-up with infectious disease specialist in 4 weeks Continue antibiotics for 6 weeks including doxycycline 400 daily and doxycycline 100 twice a day Continue anticoagulation on Apixiban I recommend SNF physician to check CBC BMP ESR, CRP every 2 weeks as per ID physician recommendation Continue aggressive bowel regimen to prevent constipation Continue fall precautions Continue aggressive PT OT evaluation and treatment at [facility]. ST eval and treatment if indicated All meals on chair sitting upright at 90 degrees to prevent aspiration Return to ER if worsening fever chills shortness of breath, diarrhea, bleeding Review risk and side effect profile of medications including antibiotics. Side effect may include mild to severe reaction including rash, diarrhea, cdiff and even which can be prevented by close follow-up with PCP and monitoring for side effects Continue diet and activity as advised Discussed importance of medication adherence Please review medication list with patient prior to discharge Please schedule follow-up with PCP/Providers prior to discharge and provide printouts Prescriptions: Doxycycline Hyclate [Morgidox] 100 mg PO BID #84 cap Moxifloxacin HCl [Avelox] 400 mg PO DAILY #42 tab - Problem Maintenance (1) Diabetic foot infection Status: Chronic - Follow up Plan Follow up with: Ronald Martin PA-C [Physician Bicycle Taxi Driver] - 09/24/18 (Follow up with [facility] on 09/24/18 or sooner if signs of readness or purulent drainage.) Disposition: Xfer SNF Prognosis: Fair Rehab Potential: Fair I certify that the patient requires SNF services: Yes Overall status at discharge: patient is progressing back to baseline Medical - DS: Qual - VTE Deep Vein Thrombosis/Pulmonary Embolism Present on Admission: No
--- NOTE | 2018-09-07 10:01 | Infectious Disease Prog Note ---
Subjective Patient information: Note initiated : 09/07/18 at 9:53 am Service Date, if different from initiated Date: [] Patient: Lizeth Newberry a 63 y/o F admitted on 09/03/18 for Right Great Toe Infection. Chief Complaint: [] Interval history: Pt is doing well. Reports no symptoms including fever, chills, n/v. Her stools are soft and semi-formed and not watery and it has been chronic due to past hx of irritable bowel syndrome. Discussed with her plans to do PO antibiotics, dairy precautions. Discussed about hand hygiene-wound care, avoiding wound contact with pets, blood sugar control. She mentions that her hx of penicillin allergy was a child, and involved having hives. She gives her consent for an oral challenge. Objective Objective Narrative: ao x 3, in nad obese no thrush the right great toe stump looks mildly swollen, with well approximated sutures, no pain, no drainage on pressing the wound edges. No discoloration. Mild redness around the wound. b/l leg edema with skin induration and changes of venous stasis - Vital Signs Vital signs: Vital Signs Temp Pulse Pulse Resp BP BP Pulse Ox 09/07/18 06:58 36.4 C 92 H 16 139/68 90 09/07/18 03:55 36.5 C 88 18 119/53 94 09/07/18 00:10 37.1 C 84 20 122/65 91 09/06/18 18:36 36.8 C 83 20 136/70 92 09/06/18 16:41 116/64 09/06/18 16:00 36.7 C 81 20 96/56 91 09/06/18 12:00 36.8 C 84 22 130/74 94 Intake and Output 09/06/18 09/07/18 09/07/18 21:59 05:59 13:59 Intake Total 2079 2240 470 Output Total 4220 476 2636 Balance 580 1465 -2180 Intake: IV 500 Vancomycin 1,500 mg In Sodium 500 Chloride 0.9% 500 ml @ 333.3 mls/hr IV Q12H [facility] Rx#: [id number] Oral 2079 1740 470 Output: Void Amount 1980 360 4592 Other: Meal Dinner tuna sandwich Breakfast Percent of Meal Consumed 100% 100% 100% Feeding Ability Independent Urine Appearance Clear Clear Urine Color Bright Yellow Bright Yellow Light [place] Urine Odor Normal Strong Stool Size Moderate Stool Color Brown Stool Consistency Soft Weight 143.562 kg Intake & Output: Intake & Output 09/06/18 09/07/18 09/07/18 21:59 05:59 13:59 Intake Total 2079 2240 470 Output Total 5858 538 0636 Balance 580 1465 -2180 Weight 143.562 kg Intake: IV 500 Vancomycin 1,500 mg In Sodium 500 Chloride 0.9% 500 ml @ 333.3 mls/hr IV Q12H [facility] Rx#: [id number] Oral 2079 1740 470 Output: Void Amount 0581 108 7717 Other: Meal Dinner tuna sandwich Breakfast Percent of Meal Consumed 100% 100% 100% Feeding Ability Independent Urine Appearance Clear Clear Urine Color Bright Yellow Bright Yellow Light [place] Urine Odor Normal Strong Stool Size Moderate Stool Color Brown Stool Consistency Soft - Lab 09/07/18 04:58 09/07/18 04:58 Most recent lab results Calcium 8.5 mg/dl (8.6-10.4) L 09/07/18 04:58 Phosphorus 3.8 mg/dL (2.7-4.5) 09/07/18 04:58 Magnesium 1.7 mg/dL (1.6-2.5) 09/07/18 04:58 Microbiology 09/04/18 12:36 Foot - Right Gram Stain - Final 09/04/18 12:36 Foot - Right Gram Stain - Final 09/04/18 12:36 Foot - Right Wound Culture - Final 09/04/18 12:36 Toe - First Gram Stain - Final 09/04/18 12:36 Toe - First Anaerobic Culture - Preliminary 09/06/18 09:48 Stool C. difficile GDH Antigen & Toxins - Final 09/05/18 13:45 Nose MRSA (PCR) - Final Medications Active Medications: Acetaminophen (Tylenol) 650 mg PO Q4-6HP PRN PRN Reason: PAIN/FEVER > 101 Last Admin: 09/04/18 16:48 Dose: 650 mg Documented by: VANE Hydrocodone Bitart/Acetaminophen ([place] 10/325mg) 1 - 2 tab PO Q4-6HP PRN PRN Reason: Pain Last Admin: 09/07/18 02:29 Dose: 0.5 tab Documented by: MEÑOEE Albuterol Sulfate (Ventolin) 2 puff INH Q4HP PRN PRN Reason: Shortness Of Breath Last Admin: 09/06/18 00:41 Dose: 2 puff Documented by: Admin: 09/05/18 01:59 Dose: 2 puff Documented by: Admin: 09/04/18 20:23 Dose: 2 puff Documented by: KIKA Amitriptyline HCl (Elavil) 75 mg PO HS [facility] Last Admin: 09/06/18 22:01 Dose: 75 mg Documented by: Admin: 09/05/18 21:26 Dose: 75 mg Documented by: Admin: 09/04/18 20:59 Dose: 75 mg Documented by: KIKA Apixaban (Eliquis) 5 mg PO BID [facility] Last Admin: 09/07/18 09:34 Dose: 5 mg Documented by: Admin: 09/06/18 22:01 Dose: 5 mg Documented by: Admin: 09/06/18 08:18 Dose: 5 mg Documented by: Admin: 09/05/18 21:27 Dose: 5 mg Documented by: SUZAN Cefepime HCl (Maxipime) 2 gm IV Q8H [facility]; Protocol Last Admin: 09/07/18 05:18 Dose: 2 gm Documented by: Admin: 09/06/18 21:59 Dose: 2 gm Documented by: Admin: 09/06/18 14:07 Dose: 2 gm Documented by: Admin: 09/06/18 05:14 Dose: 2 gm Documented by: Admin: 09/05/18 23:28 Dose: 2 gm Documented by: Admin: 09/05/18 17:20 Dose: 2 gm Documented by: DWIGHT Cyclobenzaprine HCl (Flexeril) 10 mg PO DAILYP PRN PRN Reason: Muscle Spasm Last Admin: 09/06/18 18:09 Dose: 10 mg Documented by: MICHAEL Dextrose (Dextrose 50%) 0 ml IV UD PRN PRN Reason: Hypoglycemia Diagnostic Test (Pha) (Accu-Chek) 1 each FS ACHS [facility] Last Admin: 09/07/18 07:01 Dose: 1 each Documented by: Admin: 09/06/18 22:03 Dose: 1 each Documented by: Admin: 09/06/18 16:40 Dose: 1 each Documented by: Admin: 09/06/18 11:03 Dose: 1 each Documented by: Admin: 09/06/18 08:17 Dose: 1 each Documented by: Admin: 09/05/18 21:27 Dose: 1 each Documented by: Admin: 09/05/18 17:16 Dose: 1 each Documented by: Admin: 09/05/18 11:33 Dose: 1 each Documented by: CARLOS Cosigned by: MENA Admin: 09/05/18 07:12 Dose: 1 each Documented by: Admin: 09/04/18 21:05 Dose: 1 each Documented by: Admin: 09/04/18 16:29 Dose: 1 each Documented by: Admin: 09/04/18 13:05 Dose: 1 each Documented by: Admin: 09/04/18 06:49 Dose: 1 each Documented by: Admin: 09/03/18 21:22 Dose: 1 each Documented by: Admin: 09/03/18 17:17 Dose: 1 each Documented by: DIONI Docusate Sodium (Colace) 100 mg PO BID [facility] Last Admin: 09/07/18 09:34 Dose: 100 mg Documented by: Admin: 09/06/18 22:01 Dose: 100 mg Documented by: Admin: 09/06/18 08:18 Dose: 100 mg Documented by: Admin: 09/05/18 21:26 Dose: 100 mg Documented by: Admin: 09/05/18 09:32 Dose: 100 mg Documented by: CARLOS Rahmanigned by: DALJIT Admin: 09/04/18 20:59 Dose: Not Given Documented by: KIKA Non-Admin Reason: Loose Stool Admin: 09/04/18 10:39 Dose: Not Given Documented by: VANE Non-Ariana Reason: NPO Admin: 09/03/18 21:06 Dose: Not Given Documented by: SPIKE Non-Admin Reason: Loose Stool Fluoxetine HCl (Prozac) 40 mg PO DAILY [facility] Last Admin: 09/07/18 09:33 Dose: 40 mg Documented by: Admin: 09/06/18 08:15 Dose: 40 mg Documented by: Admin: 09/05/18 09:32 Dose: 40 mg Documented by: CARLOS Cosigned by: DALJIT Furosemide (Lasix) 40 mg PO DAILY [facility] Last Admin: 09/07/18 09:35 Dose: 40 mg Documented by: Admin: 09/06/18 08:18 Dose: 40 mg Documented by: Admin: 09/05/18 09:33 Dose: 40 mg Documented by: CARLOS Cosigned by: DALJIT Glucose (Insta-Glucose) 15 gm PO PRN PRN PRN Reason: Hypoglycemia Guaifenesin/Codeine Phosphate (Robitussin Ac) 10 ml PO Q4HP PRN PRN Reason: Cough Vancomycin HCl 1,500 mg/ (Sodium Chloride) 500 mls @ 333.3 mls/hr IV Q12H [facility] Admin: 09/07/18 09:38 Dose: Not Given Documented by: [email or web address] Non-Admin Reason: Clinical Judgement Comments: Okay to hold dose due to no IV access and pt discharging per Dr. Gordon. Infusion: 09/06/18 23:40 Dose: 0 mls/hr Documented by: Admin: 09/06/18 22:00 Dose: 333.3 mls/hr Documented by: Infusion: 09/06/18 11:10 Dose: 0 mls/hr Documented by: Admin: 09/06/18 09:34 Dose: 333.3 mls/hr Documented by: Infusion: 09/05/18 22:29 Dose: 0 mls/hr Documented by: Admin: 09/05/18 21:26 Dose: 333.3 mls/hr Documented by: Infusion: 09/05/18 12:24 Dose: 333.3 mls/hr Documented by: Admin: 09/05/18 10:53 Dose: 333.3 mls/hr Documented by: CARLOS Cosigned by: DALJIT Infusion: 09/04/18 22:26 Dose: 333.3 mls/hr Documented by: CARLOS Cosigned by: DALJIT Admin: 09/04/18 20:55 Dose: 333.3 mls/hr Documented by: Infusion: 09/04/18 13:01 Dose: 333.3 mls/hr Documented by: Admin: 09/04/18 11:30 Dose: 333.3 mls/hr Documented by: VANE Insulin Glargine (Lantus) 30 unit SQ BID [facility] Last Admin: 09/07/18 09:35 Dose: 30 units Documented by: Admin: 09/06/18 22:02 Dose: 30 units Documented by: CUCO Insulin Human Lispro (Humalog) 0 unit SQ ACHS [facility]; Protocol Last Admin: 09/07/18 07:28 Dose: 3 units Documented by: Admin: 09/06/18 22:03 Dose: 1 units Documented by: Admin: 09/06/18 16:40 Dose: Not Given Documented by: ALEMTONIDHI Non-Admin Reason: 139 - Not needed Admin: 09/06/18 11:51 Dose: 4 units Documented by: Admin: 09/06/18 08:16 Dose: 2 units Documented by: Admin: 09/05/18 21:27 Dose: 1 units Documented by: Admin: 09/05/18 17:15 Dose: 1 units Documented by: Admin: 09/05/18 11:53 Dose: 4 units Documented by: CARLOS Cosigned by: DWIGHT Admin: 09/05/18 07:52 Dose: 3 units Documented by: CARLOS Cosigned by: DWIGHT Admin: 09/04/18 21:18 Dose: 3 units Documented by: Admin: 09/04/18 16:39 Dose: 3 units Documented by: Admin: 09/04/18 13:22 Dose: 3 units Documented by: Admin: 09/04/18 07:30 Dose: Not Given Documented by: THANG Non-Admin Reason: NPO Admin: 09/03/18 21:22 Dose: 4 units Documented by: Admin: 09/03/18 17:37 Dose: 1 units Documented by: DIONI Insulin Human Lispro (Humalog) 25 unit SQ AC [facility] Last Admin: 09/07/18 07:29 Dose: 25 units Documented by: [email or web address] Admin: 09/06/18 16:49 Dose: 25 units Documented by: Admin: 09/06/18 11:51 Dose: 25 units Documented by: Admin: 09/06/18 08:17 Dose: 25 units Documented by: Admin: 09/05/18 17:15 Dose: 25 units Documented by: Admin: 09/05/18 11:54 Dose: 25 units Documented by: CARLOS Cosigned by: DWIGHT Admin: 09/05/18 07:51 Dose: 25 units Documented by: CARLOS Cosigned by: DWIGHT Admin: 09/04/18 16:40 Dose: 25 units Documented by: Admin: 09/04/18 13:23 Dose: 25 units Documented by: VANE Iron Carb/Multivit/[place]/Folic Acid (Multivitamin W/Minerals) 1 tab PO DAILY [facility] Last Admin: 09/07/18 09:34 Dose: 1 tab Documented by: Admin: 09/06/18 08:17 Dose: 1 tab Documented by: Admin: 09/05/18 09:33 Dose: 1 tab Documented by: CARLOS Rahmanigned by: DALJIT Admin: 09/04/18 10:39 Dose: Not Given Documented by: VANE Non-Admin Reason: NPO Loperamide HCl (Imodium) 2 mg PO PRN PRN PRN Reason: Diarrhea Last Admin: 09/06/18 10:18 Dose: 2 mg Documented by: ANTONIA Metformin HCl (Glucophage) 1,000 mg PO BIDCC [facility] Last Admin: 09/07/18 07:28 Dose: 1,000 mg Documented by: [email or web address] Admin: 09/06/18 16:49 Dose: 1,000 mg Documented by: Admin: 09/06/18 08:18 Dose: 1,000 mg Documented by: Admin: 09/05/18 17:14 Dose: 1,000 mg Documented by: Admin: 09/05/18 09:31 Dose: 1,000 mg Documented by: CARLOS Cosigned by: DALJIT Admin: 09/04/18 16:40 Dose: 1,000 mg Documented by: VANE Omeprazole (Prilosec) 40 mg PO ACB [facility] Last Admin: 09/07/18 07:00 Dose: 40 mg Documented by: Admin: 09/06/18 08:18 Dose: 40 mg Documented by: Admin: 09/05/18 07:53 Dose: 40 mg Documented by: CARLOS Cosigned by: DWIGHT Ondansetron HCl (Zofran) 4 mg IV Q4-6HP PRN PRN Reason: Nausea And Vomiting Potassium Chloride (Kdur) 10 meq PO QAMCC [facility] Last Admin: 09/07/18 07:28 Dose: 10 meq Documented by: [email or web address] Admin: 09/06/18 08:18 Dose: 10 meq Documented by: Admin: 09/05/18 09:34 Dose: 10 meq Documented by: CARLOS Cosigned by: DALJIT Risperidone (Risperdal) 6 mg PO BID [facility] Admin: 09/07/18 09:34 Dose: 6 mg Documented by: Admin: 09/06/18 22:00 Dose: 6 mg Documented by: Admin: 09/06/18 08:19 Dose: 6 mg Documented by: Admin: 09/05/18 21:26 Dose: 6 mg Documented by: Admin: 09/05/18 10:57 Dose: 6 mg Documented by: CARLOS Cosigned by: DALJIT Admin: 09/04/18 20:56 Dose: 6 mg Documented by: KIKA Senna/Docusate Sodium (Senna Plus Tablet) 1 tab PO HS [facility] Last Admin: 09/06/18 22:02 Dose: 1 tab Documented by: Admin: 09/05/18 21:26 Dose: 1 tab Documented by: Admin: 09/04/18 21:00 Dose: Not Given Documented by: KIKA Non-Admin Reason: Loose Stool Admin: 09/03/18 21:06 Dose: Not Given Documented by: SPIKE Non-Admin Reason: Loose Stool Sitagliptin Phosphate (Januvia) 50 mg PO DAILY [facility] Last Admin: 09/07/18 09:33 Dose: 50 mg Documented by: Admin: 04/11/19 08:19 Dose: 50 mg Documented by: Admin: 09/05/18 09:32 Dose: 50 mg Documented by: CARLOS Cosigned by: DALJIT Sodium Chloride (Saline Flush) 10 ml IV Q8 [facility] Last Admin: 09/07/18 05:19 Dose: 10 ml Documented by: Admin: 09/06/18 22:04 Dose: 10 ml Documented by: Admin: 09/06/18 14:08 Dose: 10 ml Documented by: Admin: 09/06/18 05:14 Dose: 10 ml Documented by: Admin: 09/05/18 21:28 Dose: 10 ml Documented by: Admin: 09/05/18 12:30 Dose: 10 ml Documented by: CARLOS Cosigned by: DALJIT Admin: 09/05/18 07:53 Dose: 10 ml Documented by: CARLOS Cosigned by: DWIGHT Admin: 09/04/18 22:37 Dose: 10 ml Documented by: Admin: 09/04/18 13:23 Dose: 10 ml Documented by: Admin: 09/04/18 05:09 Dose: 10 ml Documented by: Admin: 09/03/18 21:23 Dose: 10 ml Documented by: SPIKE Tamsulosin HCl (Flomax) 0.4 mg PO HS [facility] Last Admin: 09/06/18 22:01 Dose: 0.4 mg Documented by: Admin: 09/05/18 21:27 Dose: 0.4 mg Documented by: Admin: 09/04/18 20:59 Dose: 0.4 mg Documented by: KIKA Trazodone HCl (Desyrel) 50 mg PO HSP PRN PRN Reason: Insomnia Last Admin: 09/03/18 21:23 Dose: 50 mg Documented by: SPIKE Vancomycin HCl (Vancomycin Per Pharmacy) 1 order IV UD [facility] Zolpidem Tartrate (Ambien) 5 mg PO QHS [facility] Last Admin: 09/06/18 22:01 Dose: 5 mg Documented by: Admin: 09/05/18 21:27 Dose: 5 mg Documented by: Admin: 09/04/18 21:01 Dose: 5 mg Documented by: [email or web address] Assessment and Plan - Narrative A/P Narrative: A: 1. 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 qSOFA score 0: no concerns for Sepsis 3. Penicillin allergy: pt reports hives many (>10 years ago) - tolerated oral challenge with 250 mg Amoxicillin without any allergic symptoms at 3 hrs Recommendations: - Stop IV Vanc and IV Cefepime - will start on oral Moxifloxacin 400 mg q24 hrs and PO Doxycycline 100 mg bid for 6 weeks - pt counselled to keep her legs elevated while sitting or lying down to help with postural drainage and help with chronic dependent edema - ID clinic appointment in 4 weeks on 10/08/18 at 10 am - Follow up labs every 2 weeks: CBC, BMP, ESR and CRP - Pt counselled to keep her wound away from her pets, hand hygiene (her or her ) while changing dressing, maintain her blood sugars as follows: fasting around 110 post-prandial (after 2 hrs of meals) 140-200 - Pt tolerated oral amoxicillin without any problems, will remove penicillin allergy off the list (documented the reason for removal). Bg Gordon MD Infectious diseases
[2018-09-07] MEDS: ALBUTEROL SULFATE 1 PUFF INHALER INH PRN (11:40)
== END 2018-09-07 12:32 | DRG 617 ==
LOC: MEDSUR 14:43
PROVIDERS: ADMIT Internal Medicine; ATTEND Internal Medicine